=== PATIENT | male | born 1965 | race Caucasian/White ===

== ENCOUNTER 2024-09-05 15:00 | Outpatient (CLI) | payer OTHER, SELFPAY ==
[2024-09-06 17:56] LABS: PSA, Screening 1.3 ng/mL (<=3.5)
== END 2024-09-05 15:01 | disposition home or self-care (01) ==
LOC: LBO 15:02
PROVIDERS: PCP Family Medicine; Visit Provider Nurse Practitioner Gerontology
DX: R39.9 Unspecified symptoms and signs involving the genitourinary system (principal); R33.9 Retention of urine, unspecified; N40.1 Benign prostatic hyperplasia with lower urinary tract symptoms
CPT/HCPCS: 36415; 84153

== ENCOUNTER 2025-05-19 15:23 | Outpatient (CLI) | payer OTHER, SELFPAY ==
--- NOTE | 2025-05-19 14:45 | DI.RAD_ITS ---
Exam(s) XR PELVIS AP EXAM: XR PELVIS AP CLINICAL HISTORY: OA L hip THR Planning. TECHNIQUE: 2D digital imaging was performed. Single AP view. COMPARISON: CR XR HIP MIN 2V LT from 11/26/2024 FINDINGS: BONES: No acute fracture is present. No bony destructive lesion is seen. JOINTS: No dislocation present. Severe narrowing of the left superior hip joint space and periarticular spurring. Subchondral cysts noted on both sides of the joint. There appears to be some minor flattening of the femoral head. The right hip joint space is maintained. There is mild right acetabular spurring. SOFT TISSUE: Normal. IMPRESSION: Severe degenerative changes of the left hip. DATA REPOSITORY: RADIATION DOSE DELIVERED:
== END 2025-05-19 15:24 | disposition home or self-care (01) ==
LOC: DIORS 15:23
PROVIDERS: PCP Family Medicine; Visit Provider Physician Assistant
DX: M16.12 Unilateral primary osteoarthritis, left hip; M25.552 Pain in left hip
CPT/HCPCS: 72170

== ENCOUNTER 2025-07-17 18:29 | Outpatient (REF) | payer MEDICAID, SELFPAY ==
[2025-07-17 17:45] LABS: HCT 49.6 % (40.0-50.0); HGB 16.1 g/dL (13.5-17.5); MCH 30.2 pg (27.0-33.0); MCHC 32.5 % (32.0-36.0); MCV 93 fL (80-95); MPV 9.8 fL (8.0-11.0); Platelet Count 336 10^3/uL (130-400); RBC 5.33 10^6/uL (4.36-5.78); RDW 13.1 % (11.8-14.1); RDW-SD 44.4 fL; WBC 14.48 10^3/uL (4.4-10.8)
[2025-07-17 18:05] LABS: Anion Gap 11.3 mmol/L (3-11); BUN 20 mg/dL (7-18); CO2 22.7 mmol/L (21.0-32.0); Calcium 10.0 mg/dL (8.5-10.1); Chloride 105 mmol/L (98-107); Estimated GFR 105.49 (mL/min/1.73m2); Glucose 110 mg/dL (74-106); Potassium 4.6 mmol/L (3.5-5.1); Sodium 139 mmol/L (136-145)
== END 2025-07-17 18:30 | disposition home or self-care (01) ==
LOC: LBN 18:29
PROVIDERS: PCP Specialist/Technologist Athletic Trainer; Visit Provider Physician Assistant
DX: M16.12 Unilateral primary osteoarthritis, left hip (principal); Z01.818 Encounter for other preprocedural examination
CPT/HCPCS: 80048; 85027; 82985

== ENCOUNTER 2025-08-19 06:05 | Day surgery (SDC) | payer MEDICAID, SELFPAY ==
[2025-08-19] VITALS (29 sets, daily range): BP systolic 78–152; BP diastolic 26–86; PULSE 42–81; RESP 12–22; TEMP 35.8–36.8; O2SAT 84–100; BMI 29.6
--- NOTE | 2025-08-19 06:34 | W.ANESPRE ---
General Info Date of Service Date Performed: 08/19/25 Height: 5 ft 8 in Weight: 88.451 kg Body Mass Index (BMI): 29.6 Surgical Procedure: Operation Date: 08/19/25 07:50 Proposed Procedure Side Surgeon p Hip Total Hip Anterior, ACTIS Left Colby Lopez MD Meds Allergies and Home Medications Allergies Allergy/AdvReac Type Severity Reaction Status Date / Time No Known Allergies Allergy Verified 08/19/25 06:16 Home Medication ?Medication ?Instructions ?Recorded albuterol sulfate 90 mcg/actuation 2 puff inhalation Q6H PRN 06/17/24 aerosol inhaler albuterol sulfate 90 mcg/actuation 2 puff inhalation Q4H PRN 06/17/24 aerosol inhaler (Ventolin HFA) atorvastatin 20 mg tablet 20 mg PO DAILY 06/17/24 dapagliflozin propanediol 5 mg 5 mg PO DAILY 06/17/24 tablet (Farxiga) fluoxetine 60 mg tablet 60 mg PO DAILY 06/17/24 mecobalamin (vitamin B12) 1,000 1,000 mcg PO DAILY 06/17/24 mcg lozenges metformin 500 mg tablet 1,000 mg PO BID 06/17/24 alfuzosin 10 mg tablet,extended 10 mg PO DAILY #90 tabs 09/18/24 release 24 hr methylphenidate HCl 10 mg tablet 20 mg PO BID 07/17/25 tramadol 50 mg tablet 100 mg PO Q6H PRN 08/15/25 tirzepatide 5 mg/0.5 mL 5 mg subcut DIRECTED 08/18/25 subcutaneous pen injector (Marcus) Current Visit Medications: Current Medications Generic Name Dose Route Start Last Admin Trade Name Freq PRN Reason Stop Dose Admin Acetaminophen 1,000 mg 08/19/25 06:00 Acetaminophen 500 Mg Tab PO 09/17/25 23:59 PREOP WENDY Celecoxib 400 mg 08/19/25 06:00 Celecoxib 200 Mg Cap PO 09/17/25 23:59 PREOP WENDY Gabapentin 300 mg 08/19/25 06:00 Gabapentin 300 Mg Cap PO 09/17/25 23:59 PREOP WENDY Ringer's Solution 1,000 mls @ 80 mls/hr 08/19/25 06:00 IV 09/17/25 23:59 INFUSION WENDY Cefazolin Sodium/Dextrose 2 gm in 50 mls @ 100 mls/hr 08/19/25 06:00 Ancef Duplex IVPB 09/17/25 23:59 PREOP WENDY Tranexamic Acid/Sodium Chloride 1,000 mg in 100 mls @ 600 mls/hr 08/19/25 06:00 IVPB 09/17/25 23:59 PREOP WENDY IV Miscellaneous Supplies 1 each 08/19/25 06:00 Iv Access IV 09/17/25 23:59 DIRECTED WENDY Sodium Chloride 0 ml 08/19/25 06:00 Normal Saline Flush 10 Ml Syr IV 09/17/25 23:59 PRN PRN Sodium Chloride 0 ml 08/19/25 06:00 Normal Saline 10 Ml Vial IJ 09/17/25 23:59 DIRECTED PRN Sterile Water 0 ml 08/19/25 06:00 Water,Injection,Sterile 10 Ml Vial IJ 09/17/25 23:59 DIRECTED PRN PFSH Active Problems Active Problems: Problem Status Onset Code Osteoarthritis of left hip Acute M16.12 Medical History Medical History BPH w urinary obs/LUTS Urinary retention Vesicular eczema Psoriasis Prostatitis HTN (hypertension) Diabetes Smoking Periodic limb movement disorder TALIA (obstructive sleep apnea) Lumbago Knee pain HLD (hyperlipidemia) Heart murmur COLD (chronic obstructive lung disease) Allergic rhinitis Surgical History Surgical History H/O shoulder replacement Left Tobacco Smoking/Tobacco Use Status: Current every day Tobacco Type: cigarettes Alcohol Alcohol Intake: former Substance Use Substance use: Occasionally Substance use type: marijuana Details: couple times a week Anesthesia Assessment and Plan Anesthesia History Personal History: No History of Anesthesia Complications and Unknown Anesthesia History Family History: No Family History of Anesthesia Complications Exercise Tolerance Exercise Tolerance: Metabolic Equivalents>4 Pertinent Negatives Pertinent Negatives: No Symptoms of GERD, No Major Cardiovascular Symptoms or Complaints and No History of CVA/TIA Cardiac & Pulmonary Exam Cardiac Exam: Normal S1/S2 Heart Sounds Pulmonary Exam: Wheezing Present (instucted to take inhaler prior to surgery) Implantable Cardiac Device Does patient have a Pacemaker or an ICD?: No Airway Exam Known Difficult Airway: No Mallampati Class: 2 Mouth Opening: Normal (> 3cm) Thyromental Distance: Greater than 3 cm Neck Range of Motion: Full ROM Neck Circumference: Normal Teeth Condition: Generalized Poor Dentition ASA Classification ASA Score: ASA 3 Emergency Case?: No NPO Status NPO Status: NPO Clears >2 hours, Solids >8 hours Anesthesia Plan Resuscitation Status: Full Code Anesthesia Technique: Spinal Anesthesia Airway Planned: Natural Airway Monitors Used: Standard Monitors
[2025-08-19] MEDS: Acetaminophen 500 MG TAB 1000 MG PO (06:35)
[2025-08-19] MEDS: Celecoxib 200 MG CAP 400 MG PO (06:35)
--- NOTE | 2025-08-19 06:45 | DI.RAD_ITS ---
Exam(s) XR HIP LT IN OR EXAM: XR HIP LT IN OR CLINICAL HISTORY: Osteoarthritis of left hip TECHNIQUE: 2D and realtime digital imaging was performed. CONTRAST MATERIAL: Refer to procedure report. COMPARISON: CR XR PELVIS AP from 05/19/2025 FINDINGS: Fluoroscopy was provided for Dr. Lopez during the performance of a left total hip arthroplasty. Please refer to the procedure report for complete details. Ka,r=3.7 mGy IMPRESSION: RADIATION DOSE DELIVERED: 0.0 0.0 0
[2025-08-19] MEDS: Lactated Ringers 1,000 ML 80 ML IV (06:55)
--- NOTE | 2025-08-19 07:01 | W.PM.DSUDISC ---
Date of service: 08/19/25 Discharge Plan Disposition Patient Disposition: Home Condition: Good Discharge Details Reason For Visit: Left hip DJD Attending Provider: oClby Lopez Primary Care Provider: Dennys Rodas Home Meds and New Rx's Prescriptions: New celecoxib [Celebrex] 200 mg capsule 200 mg PO BID PRNQty: 60 0RF Rx Instructions: Take one tablet twice daily for pain and inflammation aspirin 81 mg tablet,delayed release (DR/EC) 81 mg PO BID 30 Days Qty: 60 0RF acetaminophen 500 mg tablet 1,000 mg PO Q8H PRN Qty: 90 0RF Rx Instructions: Take two tablets up to every 8 hours as needed for pain pantoprazole 40 mg tablet,delayed release (DR/EC) 40 mg PO DAILY Qty: 14 0RF Rx Instructions: Take one tablet once daily docusate sodium [Colace] 100 mg capsule 100 mg PO BID Qty: 28 0RF oxycodone 5 mg tablet 5 mg PO Q6H PRNQty: 12 0RF Rx Instructions: Take one tablet up to every 6 hours as needed for severe postoperative pain Continued albuterol sulfate 90 mcg/actuation HFA aerosol inhaler 2 puff inhalation Q6H PRN atorvastatin 20 mg tablet 20 mg PO DAILY dapagliflozin propanediol [Farxiga] 5 mg tablet 5 mg PO DAILY Patient Comments: 08/15- preop call done and advised to hold med until after surgery fluoxetine 60 mg tablet 60 mg PO DAILY metformin 500 mg tablet 1,000 mg PO BID Patient Comments: 08/15 preop call advised pt to hold pm dose night before and am dose day of surgery albuterol sulfate [Ventolin HFA] 90 mcg/actuation HFA aerosol inhaler 2 puff inhalation Q4H PRN mecobalamin (vitamin B12) 1,000 mcg lozenge 1,000 mcg PO DAILY Rx Instructions: allow to dissolve in mouth OR may chew lightly before swallowing alfuzosin 10 mg tablet extended release 24 hr 10 mg PO DAILY Qty: 90 1RF Rx Instructions: administer after the same meal each day methylphenidate HCl 10 mg tablet 20 mg PO BID Mounjaro 5 mg/0.5 mL pen injector 5 mg SUBCUT DIRECTED Patient Comments: INJECT 5MG SUBCUTANEOUSLY ONCE WEEKLY, ROTATE INJECTION SITES Discontinued tramadol 50 mg tablet 100 mg PO Q6H PRN Patient Comments: TAKE TWO TABLETS BY MOUTH EVERY 8 HOURS NEEDED FOR PAIN Discharge Instructions Additional Instructions: Total Hip Discharge Instructions Activity: The most important activity is to walk. You should try to take short walks a few times a day. You have no restrictions on movement or positioning, but do not try to force what you do. You will find some stiffness and weakness with hip flexion (lifting your knee). Do not try to strengthen this too early, continue to practice walking and stairs and this will come. - Outpatient physical therapy can be helpful to help return you to a normal gait and improve your flexibility and strength. This can start around 2 weeks. For some patients, it?s not necessary. Usually this is determined at the time of discharge or at the first post-operative visit. - You should wear the YAKELIN hose on both legs for 2 weeks. Dressing: Keep the surgical dressing in place for at least one week. After the first week it may be removed and replace with light gauze and tape or nothing. It may get wet after 3 days but avoid soaking the dressing. If it gets wet, just lightly pat dry. It is important to always keep some gauze between skin folds, especially when you are sitting. Spend some time with the wound exposed when you are lying flat as the incision does wrinkle onto itself. Medications: - You should take Tylenol and an anti-inflammatory Celebrex as your primary pain control medications. If the Celebrex is too expensive or not covered, please call the office for another alternative (Advil/Ibuprofen or Naproxen/Aleve). - You have been prescribed a stronger pain medication Oxycodone for breakthrough pain, take as needed as prescribed. - You have also been prescribed a stomach acid reduction agent Pantoprozole to help reduce stomach acid and reflux. - You will be taking Aspirin 81mg twice a day for DVT prevention unless instructed otherwise. - If you have constipation you should take Colace (which has been prescribed) or Miralax (which is available [id number]). It takes most people 3-4 days to have a bowel movement. Follow-up: 2 weeks If you have any acute concerns or questions, please do not hesitate to contact the office at [phone]. You may contact Dr. Lopez with any questions after hours through the hospital at [phone] or on his cell phone at [phone]. Referrals: Colby Lopez MD [ [facility] STAFF PHYSICIAN, Orthopaedic Surgical] Equipment/Supplies: Walker Activity:: Elevate Remove Dressings/Wound Care:: Do Not Remove Shower/Bathe:: Cover Diet:: As Tolerated Discharge Orders Discharge Orders: Discharge Order (Routine); Ordered 08/19/25 Ordered By: Chanelle Shea
--- NOTE | 2025-08-19 07:26 | ROE_ITS ---
Operative Note Operative Note PRE-OP DIAGNOSIS: Left Hip Osteoarthritis POST-OP DIAGNOSIS: same PROCEDURE: Left Anterior Total Hip Arthroplasty with Intraoperative Navigation SURGEON: Colby Lopez OUTREACH REPRESENTATIVE: Chanelle Shea ANESTHESIA TYPE: Spinal Refer to Anesthesia Record ESTIMATED BLOOD LOSS: 100 PATHOLOGY: none sent TOURNIQUET TIME: 0 COMPLICATIONS: None Patient was transported to: PACU Patient's condition: stable Implants: 1. Depuy [place] Acetabular Component, 54mm 2. Depuy Acetabular Liner, [id number] 3. Depuy Actis High Offset Collared Femoral Stem, Size 4 4. Depuy Altrx Ceramic Femoral Head, Size 36+1.5mm Indications: I have seen Nayan in clinic for symptoms of hip arthritis, confirmed with radiographic findings. He has exhausted nonoperative methods and was having significant limitations in daily function and desired better function and less pain. I discussed the technical details of a hip replacement. I explained the risks of the procedure to include, but not limited to, bleeding, infection, pain, stiffness, fracture, damage to nerves and vessels, damage to muscles and tendons, loosening, instability, leg length inequality, need for repeat procedure, blood clot and cardiopulmonary demise. Despite these risks, aNyan elected to proceed. Findings: There was significant signs of arthritis throughout the hip with large osteophytes around the acetabulum and the femoral neck. Procedure Description: Nayan was greeted in the preoperative holding area where the correct side was identified and marked. The consent was reviewed with the patient and signed. The history and physical was updated. All questions were answered. He was taken back to the operating room. A spinal anesthestic was then administered. The feet were wrapped with cast padding and Coban and then placed into the boot liners and then into the boots. Care was taken to protect the skin and make sure the heels were fully down and the boots were stable. The patient was then positioned onto the HANA table. Both legs were held in a neutral position. SCDs were applied. The patient was then slid down onto a peroneal post. Prophylactic antibiotics in the form of Cefazolin were administered. 1g of Tranxemic Acid was given intravenously within 30 minutes of incision. The left leg was then prepped with Chloraprep and draped in a standard fashion. A second prep with Chloraprep was performed prior to placeme nt of a shower-curtain type drape with Iodine impregnated skin protection. A timeout to confirm correct identity, side and site, procedure, allergies, anesthesia, and medical concerns was performed. An obliquely oriented incision was made starting lateral to the ASIS and running distal over the Tensor Fascia Oxana (TFL) muscle belly toward the fibular head, approximately 10cm. The skin and soft tissue was dissected sharply, through Gabi?s fascia, and to the fascia of the TFL. With the fascia and superior border of the IT band identified, the fascia was incised with a new knife just above any perforators from the IT band. The TFL muscle belly was bluntly dissected away from the fascia and moved laterally. The fat between TFL and rectus was identified to ensure the dissection was not within the TFL. Blunt dissection created space between abductors and the capsule and retractor was placed over the lateral femoral neck. The fibers of the rectus femoris tendon were identified and these were freed from the anterior capsule. A second cobra retractor was placed around the medial femoral neck. The TFL was further retracted laterally to show the deep fascia. Careful dissection through this layer identified three main crossing vessels of the lateral femoral circumflex. These were cauterized in multiple locations and then cut without any noticeable bleeding. The TFL was further released bluntly from the deep fascia to expose anterior hip capsule and fat The soft tissue orthopaedic retractor was then placed beneath the TFL and against sartorius and medial soft tissues to protect and retract the soft tissues. A T-capsulotomy was then performed starting at the superior lateral acetabulum and moving distally to the intertrochanteric ridge. These capsular flaps were tagged with a No. 1 Vicryl and elevated from within. The capsular flaps were released to the shoulder of the lateral neck and to the lesser trochanter to give excellent visualization of the proximal femur. A neck osteotomy was performed using an oscillating saw based on preoperative templates. This cut started in the shoulder and of the lateral neck and exited medially. The saw was at all times directed medially to avoid injury to the greater trochanter. Gross traction was applied to the leg and the osteotomy opened. The femoral head was removed with a corkscrew, making sure to protect the TFL on its exit. Traction was released after head removal. This was measured on the back table to determine the starting reamer size. Portions of the rectus obscuring visualization were minimally elevated off the superior acetabulum. An anterior retractor was placed over the anterior wall between capsule and labrum and attached to the Gripper retraction system. The femur was rotated to 90 degrees and medial capsule was fully released until the lesser trochanter was palpable and visible; the femur was returned to 30 degrees. A posterior retractor was placed similarly between capsule and labrum. This provided excellent visualization. The contents of the cotyloid fossa were removed with electrocautery and the labrum was removed with a knife. There was a large os acetabuli incorporated into the anterior labrum which was also removed. There was a notable floor osteophyte. There was significant chondromalacia of the superior acetabulum. Acetabular reaming began with a 49mm reamer. This first reaming was directed anterior to posterior and medial to get down to the true floor. This was inspected and reamed until the true floor was reached. The anterior retractor was then released and entry and exit was provided by traction on the capsular flaps. I then reamed sequentially up to a 54mm reamer where good fit was obtained. The larger reamers were oriented based on anatomical reference of the anterior and lateral sprague to ensure proper abduction and anteversion. Positioning and size was confirmed with the fluoroscopy. A 54mm Depuy [place] acetabular component was selected. The acetabulum was reamed around the periphery with the selected acetabular size to prevent a rim fit. The deep tissues were irrigated. The acetabular component was then impacted in a position of about 40-45 degrees of abduction and 15-20 degrees of anteversion, using the patient?s anatomy as the ultimate landmark. Fluoroscopy was used to confirm this. There was excellent care transition coordinator of the acetabular component and the inserting handle was removed. The acetabular liner, Depuy [id number] polyethylene liner, was inserted and lined up with the tines of the acetabular component. There was no soft tissue interposition. The liner was then impacted into position and confirmed to be well-seated. A portion of the amol-articular cocktail was then injected around the acetabulum into the capsule and periosteum. This cocktail consisted of 123mg of Ropivacaine, 0.25mg of Epinephrine, 0.04mg of Clonidine, and 15mg of Ketorolac, diluted to 50cc. The leg was rotated to 120 degrees. Any remaining medial capsule was released until the lesser trochanter was easily palpable. A retractor was placed medially. The lateral capsule was further released into the shoulder to allow access to the greater trochanter. A Dejesus retractor was placed over the greater trochanter which allowed the trochanter to flip in front of the capsule for excellent exposure. The leg was brought down into maximal extension and 20 degrees of adduction while ensuring there was no impingement on the acetabulum. Any remnant capsule within the trochanter was released. Piriformis and obturator externis were identified and protected. There was excellent access to the proximal femur. The lateral neck remnant was removed with a rongeur. A blunt canal probe was used to identify the canal and trajectory for later broaching. A box osteotome initiated the broach course. A small curved rasp and a curved curette were used to work laterally. Broaching then began with a starter Actis broach. This was inserted manually around the trochanter and into the canal before mallet blows. The broach was seated to the neck cut level based on the neck cut and the preoperative template. Sequential broaching was continued with the GitCafese pneumatic broaching device until a tight fit was obtained with good rotational control of the femur. A trial standard neck was inserted along with a +8.5 trial head. The leg was brought out of extension and adduction and then reduced with traction and internal rotation. The leg was stable anteriorly in a position of 30 degrees of extension and 90 degrees of external rotation. Fluoroscopy was used to ensure there was no fracture and the stem was seated well. Leg lengths were checked with an AP pelvis and pelvic reference points. Game Blisters navigation system was used to confirm appropriate positioning and leg length and offset. This showed appropriate offset but too much leg length which would be corrected by going to a high offset stem with a +1.5 mm head. Once content with the desired offset and leg lengths, the leg was brought back into extension, external rotation and adduction. The periosteum and surrounding tissue was injected with remaining portion of the amol-articular cocktail. The proximal femur was irrigated as well as the deep tissues. The Depuy Actis high offset collared stem, size 4, was then manually inserted into the proximal femur making sure to control rotation. It was then malleted into position with light blows, giving breaks to allow bone expansion and decrease risk of fracture. The selected Depuy Altrx Ceramic Head, size 36+1.5mm, was then placed onto the clean and dry trunnion and secured with impaction onto the tapered fit. The leg was brought back out of extension and adduction and reduced with tracti on and internal rotation. Stability was confirmed with no shuck at 90 degrees of external rotation and 30 degrees of extension. No impingement through range of motion arc. Final x-ray images were obtained with fluoroscopy to confirm adequate positioning and no intraoperative fracture. The deep tissues were thoroughly irrigated with Surgiphor, betadine solution. This was allowed to sit in the wound for 3 minutes before being thoroughly irrigated out with normal saline. The capsule was then reapproximated with the previously placed sutures in the proximal portion of the anterior capsule was also reapproximated with #1 Vicryl. The TFL fascia was finally closed with a No. 2 Stratafix, barbed suture. Deep tissues were then reapproximated with 0 Vicryl and a running 2-0 Vicryl. The skin was closed with a running 4-0 Monocryl in a subcuticular fashion. This was reinforced with skin glue. A Mepilex silver dressing was applied. At the end of the case, all counts were correct. Nayan was transferred to the hospital bed without difficulty and suffering no apparent complication. Nayan has a good prognosis. Physical therapy will start today and without restrictions, weight-bearing as tolerated. Aspirin 81mg BID will be used for DVT prophylaxis. Date of Procedure: 08/19/25
[2025-08-19] MEDS: ceFAZolin 2 GM/50 ML BAG IVPB (07:41)
[2025-08-19] MEDS: TRANEXAMIC ACID/SOD. CHL. 1,000 MG/100 ML BAG 600 MG IVPB (07:45)
[2025-08-19] MEDS: ePHEDrine 25 MG/5 ML Syringe IVP (09:28)
[2025-08-19] MEDS: fentaNYL 100 MCG/2 ML VIAL IVP ×2 (09:57→10:07)
[2025-08-19] MEDS: Tranexamic Acid 650 MG TAB 1300 MG PO (11:06)
[2025-08-19] MEDS: oxyCODONE 5 MG TAB PO ×2 (11:06→11:36)
--- NOTE | 2025-08-19 11:19 | IN_ITS ---
PT Notes Visit Reasons: Left hip DJD Physical Therapy Day Surgery Initial Evaluation Date: 08/19/2025 Referring Doctor: Chanelle Shea NP/Dr. Lopez PT Orders: PT CONSULT: Status post Ortho surgery Precautions: WBAT left LE Patient Profile/Admitting Diagnosis: Nayan is a 59-year-old male presents status post elective left WARNER under spinal anesthesia by Dr. Lopez on 08/19/2025. Postop uncomplicated PMHX: BPH w urinary obs/LUTS Urinary retention Vesicular eczema Psoriasis Prostatitis HTN (hypertension) Diabetes Smoking Periodic limb movement disorder TALIA (obstructive sleep apnea) Lumbago Knee pain HLD (hyperlipidemia) Heart murmur COLD (chronic obstructive lung disease) Allergic rhinitis Social History/Home Situation: Resides in multilevel home ramp to enter. Patient independent without device independent driving independent ADLs Equipment Owned/DME: None at home; patient fitted for and issued FWW Subjective: Patient reports he just wants to get up and move. Objective: [] General Observation: Male restless in bed ice pack to left hip Mental Status: Alert oriented x 4, agreeable to participate, cooperative able to follow instructions. Patient noted to be very restless antsy frequently changing positions Pain: Left hip initially 2/ 10 then progressed to 4/10 with ambulation then increased to 8/10 after stairs patient adamantly declined pain medication prior to functional mobility. However agreeable after performing stairs FELISA Portillo provided medication. ROM: [] Right Upper Extremity: WNL Left Upper Extremity: WNL Right Lower Extremity: WNL Left Lower Extremity: Hip flexion 95 degrees, abduction 10 degrees, extension to neutral, knee and ankle within normal limits Strength: [] Right Upper Extremity: 5/5 Left Upper Extremity: 5/5 Right Lower Extremity: 5/5 Left Lower Extremity: Hip flexion: 3 -/5; hip abduction: 2+/5; hip extension: 3 -/5; knee extension: 3/5; knee flexion: 3 -/5 ankle DF: 3/5 ; ankle PF: 3/5 Sensation: Intact Bed Mobility/Transfers: Supine to sit independent Sit to stand SBA with initial cues to push up from surface Stand to sit SBA Bed to chair SBA with FWW Gait: Ambulated with FWW 100 feet with reciprocal pattern decreased weightbearing through left lower extremity antalgic gait pattern with significant limp noted as increased distance. Stairs: 3 4 steps? and 2 6 steps with rails SBA with continuous cues for sequencing step to pattern x 2 trials Balance: [] Static Sitting: Normal Dynamic Sitting: Good Static Standing: Normal Dynamic Standing: Good Special Tests: [] Mobility Limitations Standardized Measure [] [facility] AM-PAC 6 clicks Basic Mobility Inpatient Short Form: [] Raw Score: 23 CMS Score: 11.20% Informed Consent/Education: Patient instructed in purpose of PT consult. Treatment: 48519 packet containing WARNER exercise protocol has been given to patient. Education and training on initial set of 5 reps of exercises that can be done at home have been completed with patient. Assessment: Patient is a 59-year-old male who presents with clinical signs and symptoms consistent with current/admitting diagnoses that have resulted to mobility limitations, gait instability, generalized weakness, and impairment of motor control as demonstrated by the following impairment level findings: 1. Decreased strength to left hip major muscle groups 2. Impaired standing balance 3. Limitation of joint range of motion in left hip 4. Pain left hip 5. Impaired functional activity tolerance and standing Impairments are contributing to the following functional limitations: 1. Inability to safely ambulate without assistive device 2. Increase completion time for mobility ADL performance 3. Increased fall risk 4. Difficulty performing stairs without pain or assistive device Patient is assessed as a low complexity based on the following: History: 59 lfr-hoht-[id number] male with impairment level findings, functional limitations, and past medical history as indicated above Examination: Demonstrable impairment in strength, balance, and mobility level with underlying impairments and functional limitations as documented above Presentation: Stable/evolving Decision Making: Low Goals: N/A. PT evaluation and 1-2 treatment sessions only for functional mobility training using recommended AD and for HEP instruction. Plan of Care/Treatment Plan: N/A. PT evaluation and 1-2 treatment session only for functional mobility training using recommended AD and for HEP instruction. DISCHARGE RECOMMENDATIONS: Home with use of FWW and home exercise program TREATMENT CODE/TIME: 44250, [id number] Thank you for the opportunity to participate in the care of this patient. Jenifer Domínguez, PT [facility]
--- NOTE | 2025-08-19 11:33 | W.ANESPOSTOP ---
Postoperative Evaluation Date, Time and Location Date Performed: 08/19/25 Time Performed: 11:33 Patient Location: Day Surgery Unit Vital Signs Most Recent Imported Vital Signs: Most Recent Vital Signs Temp Pulse Resp BP Pulse Ox 36.0 C L 51 L 18 126/65 98 08/19/25 11:28 08/19/25 11:28 08/19/25 11:28 08/19/25 11:28 08/19/25 11:28 Pain Score Most Recent Pain Score: Most Recent Pain Score Pain Level 0 08/19/25 10:52 Assessment Mental Status: Awake (Alert & Oriented to Patient Baseline) Airway and Respiratory Function: Patent airway with normal (patient baseline) respiratory exam Cardiovascular Function: Hemodynamically Stable Hydration Status: Adequately Hydrated Nausea & Vomiting: No Nausea or Vomiting Pain: Pain is tolerable per patient Peripheral Nerve Block: Patient did not receive a nerve block
== END 2025-08-19 12:00 | disposition home or self-care (01) ==
PROVIDERS: PCP Specialist/Technologist Athletic Trainer; Visit Provider Student in an Organized Health Care Education/Training Program
PROC: (CPT 27130; principal; 2025-08-19 07:30)
DX: M16.12 Unilateral primary osteoarthritis, left hip (principal)
CPT/HCPCS: 27130; 20985; 97110; 97161; 73501; C1776; J0690; J2250; J2371; J2401; J2405; J2704; J3010

== ENCOUNTER 2025-09-01 15:16 | Outpatient (CLI) | payer MEDICAID, SELFPAY ==
--- NOTE | 2025-09-01 12:15 | DI.RAD_ITS ---
Exam(s) XR HIP LT COMPLETE AP PELVIS EXAM: XR HIP LT COMPLETE AP PELVIS CLINICAL HISTORY: 1ST POST OP S/P L WARNER. TECHNIQUE: 2D digital imaging was performed. Two views. COMPARISON: CR XR PELVIS AP from 05/19/2025 XA XR HIP LT IN OR from 08/19/2025 FINDINGS: BONES: No acute fracture is present. No bony destructive lesion is seen. Enthesophytes at the iliac wings. JOINTS: Stable appearance of left hip prosthesis. No dislocation present. The SI joints and pubic symphysis are intact. There are mild degenerative changes of the right hip. SOFT TISSUE: Normal. IMPRESSION: Stable appearance of left hip prosthesis. DATA REPOSITORY: RADIATION DOSE DELIVERED:
--- NOTE | 2025-09-04 01:47 | NUR.NOTE ---
Pt accepted as lateral tx from [facility] - accepted by Dr. Richardson/Dr. Valentine. Accepted med records for continuation of care
== END 2025-09-01 15:17 | disposition home or self-care (01) ==
LOC: DIORS 15:17
PROVIDERS: PCP Specialist/Technologist Athletic Trainer; Visit Provider Student in an Organized Health Care Education/Training Program
DX: M16.12 Unilateral primary osteoarthritis, left hip (principal); Z96.642 Presence of left artificial hip joint
CPT/HCPCS: 73502

== ENCOUNTER 2025-09-04 02:49 | Inpatient (IN) | payer MEDICAID, SELFPAY ==
[2025-09-04] VITALS (43 sets, daily range): BP systolic 84–126; BP diastolic 41–80; PULSE 54–81; RESP 12–24; TEMP 35.8–38.4; O2SAT 81–99; BMI 31.1
--- NOTE | 2025-09-04 02:06 | W.PC.ACHO ---
Registration Status: PRE IN Primary Language: Preferred Language: Medical / Surgical History (Last Reviewed 08/19/25 @ 06:25 by Mendy Scott) BPH w urinary obs/LUTS Urinary retention Vesicular eczema Psoriasis Prostatitis HTN (hypertension) Diabetes Smoking Periodic limb movement disorder TALIA (obstructive sleep apnea) Lumbago Knee pain HLD (hyperlipidemia) Heart murmur COLD (chronic obstructive lung disease) Allergic rhinitis (Last Reviewed 08/19/25 @ 06:25 by Mendy Scott) H/O shoulder replacement Allergies No Known Allergies Allergy (Verified 09/01/25 13:11) v v v v v v v v v Sending and/or Receiving Nurses: Please use comment section below to note any information pertinent to the patient hand-off not included above. Information / Comments: Nayan Stock, 59 yo male, with c/o left hip pain. Left hip replacement done at [facility] approximately 1 month ago. Post op wound infection. Given in [facility] ER: 1L NS bolus, 2 gram Ceftriaxone @ 2300, 1mg dilaudid @ 0000. Pt VSS, RA, Stand and Pivots, uses urinal, voiding, NKDA, no images done at [facility]. Blood Cultures sent, Wound cultures sent, WBC 22.6, lactate 3.6, #18 RFA. Hx to include: DM type 2, smoker, COPD, chronic pain, heart murmur, HTN, sleep apnea, psoriasis Report received from: Cheri Prather RN at [facility] (Emergency Dept) @ 0155 09/04/25
[2025-09-04] MEDS: MORPHine 2 MG/ML SYR IVP ×2 (03:14→08:18)
--- NOTE | 2025-09-04 03:23 | W.PM.HP.N ---
Date of service: 09/04/25 Time of Service: 03:23 Assessment and Plan Assessment and plan (1) History of total left hip replacement: Status: Acute Assessment and plan: Patient does appear to be having a infection unknown whether this is a deep infection. Provide discussion with malt house supervisor Dr. Valentine is aware and plans on doing washout tomorrow. Patient was given Rocephin at outlying facility. According to up-to-date but attempted washout should be performed soon as possible. Considering that the Rocephin will last over 24 hours we will hold off on antibiotics at this time. (2) Smoking: Status: Acute Assessment and plan: Will add Nicorette at patient's request (3) HLD (hyperlipidemia): Assessment and plan: Continue with statin (4) Diabetes: Assessment and plan: Will add glucometers q. ACHS as well as a sliding scale as tight glucose control will help his wound healing. (5) Urinary retention: Assessment and plan: Continue with his home meds (6) COLD (chronic obstructive lung disease): Assessment and plan: Will add inhalers as needed In regards to DVT prophylaxis since he is most likely for surgery tomorrow will just do SCDs History of Present Illness History of Present Illness Chief Complaint: left hip pain Narrative: This is a 64-year-old gentleman with a known history of COPD dyslipidemia BPH diabetes controlled with metformin Farxiga and Mounjaro who had left hip replacement on 08/19/2025 and was seen again for postoperative check on 09/01/2025 and at that time he was doing fairly well. Patient did have mild drainage from the caudal part of the wound. Over the last 48 hours the patient had worsening left leg and hip pain which the ED at [facility] where an evaluation was started including lab work. In reviewing that lab work he does have a white count of 22,000 mild anemia with a hemoglobin of 13 and hematocrit hematocrit of 39 as well as a left shift. Patient was noted to have hyponatremia with a sodium of 132 and elevated BUN to creatinine ratio of 29:1 0.19 lactic acid level 3.6 CRP of 230 physician from [facility] recommended transfer to our facility as procedure was done here to which we agree. Patient states he smokes approximately 1 pack of cigarettes a week. States he otherwise takes his medications. Did not have any trouble with anesthesia. While he was in the ED at [facility] he was given Rocephin 2 g. Patient does endorse fevers and chills x 48 hours. Patient is a full code Review of Systems All systems reviewed & are unremarkable except as noted in HPI and below PFSH All Active Problems (Updated 09/01/25 @ 13:19 by GARRY Givens) Smoking (Acute) History of total left hip replacement (Acute 08/19/25) Medical History (Updated 09/01/25 @ 13:20 by GARRY Givens) BPH w urinary obs/LUTS Urinary retention Vesicular eczema Psoriasis Prostatitis HTN (hypertension) Diabetes Periodic limb movement disorder TALIA (obstructive sleep apnea) Lumbago Knee pain HLD (hyperlipidemia) Heart murmur COLD (chronic obstructive lung disease) Allergic rhinitis Surgical History (Updated 09/01/25 @ 13:19 by GARRY Givens) H/O shoulder replacement Left Social History Smoking/Tobacco Use Status: Current every day Tobacco Type: cigarettes Smoking risk assessment performed?: Yes Alcohol Intake: former Drug use: Occasionally Substance use type: marijuana Details: couple times a week Housing: other Do you feel safe at home: Yes Do you feel safe in your relationship?: Yes Additional Social history: [employer], mobile home Meds Allergies and Home Medications Allergies Allergy/AdvReac Type Severity Reaction Status Date / Time No Known Allergies Allergy Verified 09/01/25 13:11 Home Medications Medication Instructions Recorded Confirmed Type albuterol sulfate 90 mcg/actuation 2 puff inhalation Q6H PRN 06/17/24 09/04/25 History aerosol inhaler albuterol sulfate 90 mcg/actuation 2 puff inhalation Q4H PRN 06/17/24 09/04/25 History aerosol inhaler (Ventolin HFA) atorvastatin 20 mg tablet 20 mg PO DAILY 06/17/24 09/04/25 History dapagliflozin propanediol 5 mg 5 mg PO DAILY 06/17/24 09/04/25 History tablet (Farxiga) fluoxetine 60 mg tablet 60 mg PO DAILY 06/17/24 09/04/25 History mecobalamin (vitamin B12) 1,000 1,000 mcg PO DAILY 06/17/24 09/04/25 History mcg lozenges metformin 500 mg tablet 1,000 mg PO BID 06/17/24 09/04/25 History alfuzosin 10 mg tablet,extended 10 mg PO DAILY #90 tabs 09/18/24 09/04/25 Rx release 24 hr methylphenidate HCl 10 mg tablet 20 mg PO BID 07/17/25 09/04/25 History tirzepatide 5 mg/0.5 mL 5 mg subcut DIRECTED 08/18/25 09/04/25 History subcutaneous pen injector (Mounjaro) acetaminophen 500 mg tablet 1,000 mg (2 x 500 mg) PO Q8H PRN 08/19/25 09/04/25 Rx pain #90 tabs aspirin 81 mg tablet,delayed 81 mg PO BID 30 days #60 tabs 08/19/25 09/04/25 Rx release celecoxib 200 mg capsule (Celebrex) 200 mg PO BID PRN #60 caps 08/19/25 09/04/25 Rx docusate sodium 100 mg capsule 100 mg PO BID #28 caps 08/19/25 09/04/25 Rx (Colace) fluoxetine 40 mg capsule mg 09/04/25 History methylphenidate HCl 20 mg tablet mg 09/04/25 History tamsulosin 0.4 mg capsule mg PO 09/04/25 History tiotropium bromide 18 mcg capsule inhalation 09/04/25 History with inhalation device (Spiriva with HandiHaler) Exam Narrative Exam Narrative: HEENT-normocephalic atraumatic mucous membranes moist Neck-no lymphadenopathy no JVD no thyromegaly Cardiovascular-regular rate rhythm no murmurs gallops distant Lungs-clear to auscultation bilaterally good air exchange Abdomen-soft nontender nondistended Musculoskeletal with skin-approximately 4 inch vertical scar on his left hip with surrounding induration and erythema. There does appear to be some pus leaking from the Psych-alert and oriented x 3 Results Labs 09/04/25 05:35 09/04/25 05:35 Time Spent Time spent with Patient: 40-54 minutes Time was spent: preparing to see the patient(eg.review tests), obtaining and/or reviewing separately otained hiistory, ordering medications,tests, procedures, referring, communicating with other health career law clerk, indepentently interpreting results, counseling the patient and care coordination
[2025-09-04] MEDS: HYDROmorphone 2 MG/ML SYR 1 MG IVP (04:11)
[2025-09-04] MEDS: DEXTROSE 5%-0.45% SALINE 1,000 ML 75 ML IV (04:12)
[2025-09-04] MEDS: Normal Saline Flush 10 ML SYR (04:16)
[2025-09-04 07:31] LABS: Abs Immature Grans 0.18 10^3/uL (0.0-0.06); HCT 35.3 % (40.0-50.0); HGB 11.8 g/dL (13.5-17.5); Immature Grans % 0.9 %; MCH 30.9 pg (27.0-33.0); MCHC 33.4 % (32.0-36.0); MCV 92 fL (80-95); MPV 9.7 fL (8.0-11.0); Platelet Count 266 10^3/uL (130-400); RBC 3.82 10^6/uL (4.36-5.78); RDW 13.9 % (11.8-14.1); RDW-SD 47.3 fL; WBC 20.84 10^3/uL (4.4-10.8)
--- NOTE | 2025-09-04 07:38 | W.ANESPRE ---
General Info Date of Service Date Performed: 09/04/25 Height: 5 ft 8 in Weight: 93.1 kg Body Mass Index (BMI): 31.1 Surgical Procedure: Operation Date: 09/04/25 07:50 Proposed Procedure Side Surgeon p Hip I&D Possible Revision Left Colby Lopez MD Meds Allergies and Home Medications Allergies Allergy/AdvReac Type Severity Reaction Status Date / Time No Known Allergies Allergy Verified 09/01/25 13:11 Home Medication Medication Instructions Recorded albuterol sulfate 90 mcg/actuation 2 puff inhalation Q6H PRN 06/17/24 aerosol inhaler albuterol sulfate 90 mcg/actuation 2 puff inhalation Q4H PRN 06/17/24 aerosol inhaler (Ventolin HFA) atorvastatin 20 mg tablet 20 mg PO DAILY 06/17/24 dapagliflozin propanediol 5 mg 5 mg PO DAILY 06/17/24 tablet (Farxiga) fluoxetine 60 mg tablet 60 mg PO DAILY 06/17/24 mecobalamin (vitamin B12) 1,000 1,000 mcg PO DAILY 06/17/24 mcg lozenges metformin 500 mg tablet 1,000 mg PO BID 06/17/24 alfuzosin 10 mg tablet,extended 10 mg PO DAILY #90 tabs 09/18/24 release 24 hr methylphenidate HCl 10 mg tablet 20 mg PO BID 07/17/25 tirzepatide 5 mg/0.5 mL 5 mg subcut DIRECTED 08/18/25 subcutaneous pen injector (Marcus) acetaminophen 500 mg tablet 1,000 mg (2 x 500 mg) PO Q8H PRN 08/19/25 pain #90 tabs aspirin 81 mg tablet,delayed 81 mg PO BID 30 days #60 tabs 08/19/25 release celecoxib 200 mg capsule (Celebrex) 200 mg PO BID PRN #60 caps 08/19/25 docusate sodium 100 mg capsule 100 mg PO BID #28 caps 08/19/25 (Colace) fluoxetine 40 mg capsule 40 mg PO DAILY 09/04/25 methylphenidate HCl 20 mg tablet mg 09/04/25 tamsulosin 0.4 mg capsule mg PO 09/04/25 tiotropium bromide 18 mcg capsule inhalation 09/04/25 with inhalation device (Spiriva with HandiHaler) Current Visit Medications: Current Medications Generic Name Dose Route Start Last Admin Trade Name Freq PRN Reason Stop Dose Admin Acetaminophen 325 - 650 mg 09/04/25 02:49 Acetaminophen 325 Mg Tab PO Q4H PRN PRN Al Hydrox/Mg Hydrox/Simethicone 30 ml 09/04/25 02:49 Mylanta Suspension 30 Ml Cup PO Q2H PRN PRN Albuterol Sulfate 2.5 mg 09/04/25 03:36 Albuterol 2.5 Mg/3 Ml Inh Soln Vial UPD Q3H PRN PRN Albuterol/Ipratropium 3 ml 09/04/25 06:38 Albuterol/Ipratropium 3 Ml Upd Vial UPD Q6H PRN PRN Dextrose 0 gm 09/04/25 03:35 Glucose Oral Gel 15 Gm/37.5 Gm Tube PO DIRECTED PRN Dextrose/Water 0 gm 09/04/25 03:35 Dextrose 50%-Water 25 Gm/50 Ml Syr IVP DIRECTED PRN Docusate Sodium 100 mg 09/04/25 02:49 Docusate Sodium 100 Mg Cap PO TID PRN PRN Dextrose/Sodium Chloride 1,000 mls @ 75 mls/hr 09/04/25 03:00 09/04/25 04:12 Dextrose 5%-0.45% Ns IV 75 mls/hr INFUSION WENDY Administration Insulin Aspart 0 units 09/04/25 08:00 Insulin Aspart 300 Units/3 Ml Pen SC Q6H WENDY Protocol Magnesium Hydroxide 30 ml 09/04/25 02:49 Milk Of Magnesia 30 Ml Cup PO DAILY PRN PRN Morphine Sulfate 2 mg 09/04/25 02:48 09/04/25 03:14 Morphine 2 Mg/Ml Syr IVP 2 mg Q3H PRN PRN Administration Nicotine 2 mg 09/04/25 03:22 Nicotine 2 Mg Gum CH Q4H PRN PRN Polyethylene Glycol 17 gm 09/04/25 02:49 Polyethylene Glycol 3350 17 Gm Packet PO DAILY PRN PRN Constipation PFSH Active Problems Active Problems: Problem Status Onset Code Smoking Acute F17.200 History of total left hip replacement Acute 08/19/25 Z96.642 Medical History Medical History (Updated 09/01/25 @ 13:20 by GARRY Givens) BPH w urinary obs/LUTS Urinary retention Vesicular eczema Psoriasis Prostatitis HTN (hypertension) Diabetes Periodic limb movement disorder TALIA (obstructive sleep apnea) Lumbago Knee pain HLD (hyperlipidemia) Heart murmur COLD (chronic obstructive lung disease) Allergic rhinitis Surgical History Surgical History (Updated 09/01/25 @ 13:19 by GARRY Givens) H/O shoulder replacement Left Tobacco Smoking/Tobacco Use Status: Current every day Tobacco Type: cigarettes Alcohol Alcohol Intake: current Alcohol intake frequency: holidays/special occasions only Alcohol type: beer and wine Substance Use Substance use: Occasionally Substance use type: marijuana Details: once every 2 weeks Vital Signs and Lab Results Vital Signs Most Recent Vital Signs in EMR: Most Recent Vital Signs Temp Pulse Resp BP Pulse Ox 37.2 C 81 18 117/54 L 97 09/04/25 03:39 09/04/25 03:39 09/04/25 03:39 09/04/25 03:39 09/04/25 03:39 Point of Care Results Point of Care Results: Finger Stick Blood Glucose 195 09/04/25 06:36 Lab Results Complete Blood Count: WBC, (4.4-10.8) 20.84 10^3/uL H Today, 06:55 RBC, (4.36-5.78) 3.82 10^6/uL L Today, 06:55 Hgb, (13.5-17.5) 11.8 g/dL L Today, 06:55 Hct, (40.0-50.0) 35.3 % L Today, 06:55 Plt Count, (130-400) 266 10^3/uL Today, 06:55 Complete Metabolic Panel: Sodium, (136-145) 135 mmol/L L Today, 06:55 Potassium, (3.5-5.1) 3.9 mmol/L Today, 06:55 Chloride, (98-107) 101 mmol/L Today, 06:55 Carbon Dioxide, (21.0-32.0) 26.6 mmol/L Today, 06:55 BUN, (7-18) 20 mg/dL H Today, 06:55 Creatinine, (0.70-1.30) 0.8 mg/dL Today, 06:55 Est GFR (CKD-EPI 2020), (mL/min/1.73m2) 101.32 Today, 06:55 Calcium, (8.5-10.1) 8.6 mg/dL Today, 06:55 Albumin, (3.4-5.0) 2.6 g/dL L Today, 06:55 Glucose, (74-106) 166 mg/dL H Today, 06:55 C-Reactive Protein Pending Today, 05:35 Liver Function Panel: ALT, (16-63) 25 U/L Today, 06:55 AST, (15-37) 12 U/L L Today, 06:55 Anesthesia Assessment and Plan Anesthesia History Personal History: No History of Anesthesia Complications and Unknown Anesthesia History Family History: No Family History of Anesthesia Complications Exercise Tolerance Exercise Tolerance: Metabolic Equivalents>4 Cardiac & Pulmonary Exam Cardiac Exam: Normal S1/S2 Heart Sounds Pulmonary Exam: Clear Bilateral Breath Sounds Cardiac and Pulmonary Comment:: does have a cough. Implantable Cardiac Device Does patient have a Pacemaker or an ICD?: No Airway Exam Known Difficult Airway: No Mallampati Class: 2 Mouth Opening: Normal (> 3cm) Thyromental Distance: Greater than 3 cm Neck Range of Motion: Full ROM Neck Circumference: Normal Teeth Condition: Generalized Poor Dentition ASA Classification ASA Score: ASA 2 Emergency Case?: No NPO Status NPO Status: NPO Clears >2 hours, Solids >8 hours Anesthesia Plan Resuscitation Status: Full Code Anesthesia Technique: General Anesthesia Airway Planned: Endotracheal Tube Monitors Used: Standard Monitors Preoperative Comments:: 59 yo to OR for I/D of hip. currently inpt. Has received hydromorphone, morphine for pain. Per hospitalist H/P, Rocephin 2 grams was given at OSH - unsure of time. Sig PMHx: HTN, TALIA, COPD (duoneb this AM), DM (Farxiga, metformin, Mounjaro), BPH (Afluzosin). Current smoker, occ EtOH/cannabis. Discussed GA vs spinal, not interested in spinal due to sig pain currently. Plan for GA.
[2025-09-04 07:47] LABS: RBC Morphology Normal
[2025-09-04 07:56] LABS: ALT 25 U/L (16-63); AST 12 U/L (15-37); Albumin 2.6 g/dL (3.4-5.0); Alkaline Phosphatase 83 U/L (46-116); Anion Gap 7.4 mmol/L (3-11); BUN 20 mg/dL (7-18); Bilirubin, Total 0.3 mg/dL (0.2-1.0); CO2 26.6 mmol/L (21.0-32.0); Calcium 8.6 mg/dL (8.5-10.1); Chloride 101 mmol/L (98-107); Glucose 166 mg/dL (74-106); Potassium 3.9 mmol/L (3.5-5.1); Sodium 135 mmol/L (136-145); Total Protein 6.7 g/dL (6.4-8.2)
--- NOTE | 2025-09-04 07:58 | DI.CT_ITS ---
Exam(s) CT LOWER EXTREMITY LT WO EXAM: CT LOWER EXTREMITY LT WO CLINICAL HISTORY: postop WARNER infection. TECHNIQUE: Imaging Protocol: Axial computed tomography images with coronal and sagittal reformatted images were created and reviewed. COMPARISON: CR XR HIP LT COMPLETE AP PELVIS from 09/01/2025 CR XR HIP LT AP LAT ONLY from 09/04/2025 FINDINGS: There is artifact from the patient's left total hip arthroplasty. Bones: Patient has a left total hip arthroplasty. There are no suspicious lucencies around the orthopedic hardware. Bony alignment is satisfactory. No findings to suggest osteomyelitis. There is a vertical lucency seen in the acetabular roof (series 12, image 65 and series 16, image 16). This may represent a nondisplaced fracture. No lytic or sclerotic lesions are identified. Soft Tissues: There is edema seen in the soft tissues of the lateral thigh. There is a air-fluid collection measuring 3.2 transverse by 5.7 AP by 9.1 craniocaudad cm. It lies within the anterior compartment and compresses the vastus lateralis muscle. It lies deep to the tensor fascia manuel muscle. Note is made of diverticulosis in the colon. Atherosclerotic calcification is present. IMPRESSION: 1. 3.2 x 5.7 x 9.1 cm in capsulated air-fluid collection interposed between the tensor fascia manuel and the vastus lateralis muscle. This may represent a postoperative seroma, resolving hematoma or possible abscess. 2. Vertical lucency seen in the lateral acetabular roof which may represent a nondisplaced fracture. 3. Left total hip arthroplasty. RADIATION DOSE DELIVERED: 411.64mGy.cm Total DLP 411.64mGy.cm Total DLP DATA REPOSITORY: All CT scans at this facility are submitted to the National Radiology Data Registry (NRDR) Dose Index Registry (DIR) with the [employer] (A[employer]). RADIATION OPTIMIZATION: All CT scans at this facility use at least one of these dose optimization techniques: automated exposure control; mA and/or kV adjustment per patient size (includes targeted exams where dose is matched to clinical indication); or iterative reconstruction.
--- NOTE | 2025-09-04 08:05 | DI.RAD_ITS ---
Exam(s) XR HIP LT AP LAT ONLY EXAM: XR HIP LT AP LAT ONLY CLINICAL HISTORY: postop infection. TECHNIQUE: 2D digital imaging was performed of the left hip. Three views were obtained. AP and cross-table lateral views were obtained. COMPARISON: CR XR HIP LT COMPLETE AP PELVIS from 09/01/2025 FINDINGS: BONES: No acute fracture is present. No bony destructive lesion is seen. JOINTS: There is a left total hip arthroplasty which appears in good position. No suspicious lucencies are seen around the orthopedic hardware. SOFT TISSUE: Normal. IMPRESSION: Left total hip arthroplasty. DATA REPOSITORY: RADIATION DOSE DELIVERED:
[2025-09-04] MEDS: Nicotine 2 MG GUM CH (08:18)
[2025-09-04] MEDS: Acetaminophen 500 MG TAB 1000 MG PO ×2 (09:01→20:10)
[2025-09-04] MEDS: Ketorolac 15 MG/ML VIAL IVP ×2 (09:03→22:07)
[2025-09-04] MEDS: FLU Vaccine TS 2025-26 PF (36MOS UP) 45 MCG/0.5 ML SYR IM (09:05)
--- NOTE | 2025-09-04 09:53 | OCONE_ITS ---
Date of service: 09/04/25 Time of Service: 07:55 History of Present Illness History of Present Illness Chief Complaint: Left hip pain Narrative: Nayan is a 59-year-old male who is just over 2 weeks status post left hip replacement. He was seen in the office just 3 days ago for his left hip replacement. He reported to be doing well was having more pain in the right side. He is ambulating without assistive device. However, the following day started feeling some more pain in the left hip and then by the following day, yesterday, he had more exquisite pain about the left hip with fever and chills. He presented to [facility] emergency department where there was some scant drainage from the hip wound and concern for infection. Dr. Valentine was called in consultation and he was eventually transferred to the hospital service. [facility]. He reports exquisite pain at the left hip. He reports subjective fevers and chills. With elevated white count, CRP, sed rate. X-ray and CT scan were performed this morning. He denies any issues preceding this and the onset was relatively sudden. Consults Consult date: 09/04/25 Requesting physician: Jasen Richardson Consult Reason Left postsurgical hip infection Assessment and Plan Assessment and plan (1) Left hip postoperative wound infection: Status: Acute Assessment and plan: Nayan is a 59-year-old male who is just over 2-week status post left hip replacement. Unfortunately he has developed an infection about the left hip wound. This appears to be within the musculature and the soft tissue. It does not seem to track into the joint based on the CT scan. However, this is obviously a concern. Nevertheless, with a very quick presentation my suspicion is that this is more superficial than deep. I recommend we proceed to the operating today for irrigation and debridement of the left hip wound. If this goes into the hip joint then we may have to consider deep irrigation debridement with potential for headliner exchange. I reviewed all this with Nayan. We will hold on antibiotics until after cultures been obtained. NPO. Review of Systems All systems reviewed & are unremarkable except as noted in HPI and below PFSH All Active Problems (Updated 09/01/25 @ 13:19 by GARRY Givens) Left hip postoperative wound infection (Acute) Smoking (Acute) History of total left hip replacement (Acute 08/19/25) Medical History (Updated 09/04/25 @ 11:31 by Colby Lopez MD) BPH w urinary obs/LUTS Urinary retention Vesicular eczema Psoriasis Prostatitis HTN (hypertension) Diabetes Periodic limb movement disorder TALIA (obstructive sleep apnea) Lumbago Knee pain HLD (hyperlipidemia) Heart murmur COLD (chronic obstructive lung disease) Allergic rhinitis Surgical History (Updated 09/01/25 @ 13:19 by GARRY Givens) H/O shoulder replacement Left Social History Smoking/Tobacco Use Status: Current every day Tobacco Type: cigarettes Smoking risk assessment performed?: Yes Alcohol Intake: current Alcohol Intake frequency: holidays/special occasions only Alcohol type: beer and wine Drug use: Occasionally Substance use type: marijuana Details: once every 2 weeks Housing: other Do you feel safe at home: Yes Do you feel safe in your relationship?: Yes Additional Social history: [employer], mobile home Exam Narrative Exam Narrative: Laying supine in the hospital stretcher. Obviously uncomfortable. Alert and orient x 3. Evaluation of the left leg shows an approximate incision several very small area about the midportion of the wound which has some scant purulent drainage. There is notable erythema seen about the anterolateral aspect the proximal left thigh. He does report some pain with all range of motion although direct palpation of the left hip and thigh causes the majority of the pain. Sensation intact to light touch over the femoral and sciatic nerve distributions. Results Last Vital Signs Temp 38.4 C H 09/04/25 08:54 Pulse 80 09/04/25 08:54 Resp 16 09/04/25 08:54 BP 120/67 09/04/25 08:54 Pulse Ox 93 09/04/25 08:54 Labs 09/04/25 06:55 09/04/25 06:55 Labs: Laboratory Results - last 24 hr 09/04/25 06:55 WBC 20.84 H RBC 3.82 L Hgb 11.8 L Hct 35.3 L MCV 92 MCH 30.9 MCHC 33.4 RDW 13.9 Plt Count 266 MPV 9.7 Immature Gran % 0.9 Neutrophils % 83.5 Lymphocytes % 5.2 Monocytes % 10.2 Eosinophils % 0.0 Basophils % 0.2 Nucleated RBC % 0.0 Absolute Neutrophils 17.40 H Absolute Lymphocytes 1.08 L Absolute Monocytes 2.13 H Absolute Eosinophils 0.00 Absolute Basophils 0.04 RBC Morphology Normal Sodium 135 L Potassium 3.9 Chloride 101 Carbon Dioxide 26.6 Anion Gap 7.4 BUN 20 H Creatinine 0.8 Est GFR (CKD-EPI 2020) 101.32 Glucose 166 H Calcium 8.6 Total Bilirubin 0.3 AST 12 L ALT 25 Alkaline Phosphatase 83 Total Protein 6.7 Albumin 2.6 L Imaging Imaging Studies: X-ray of the left hip shows a well-placed prosthesis. No signs of acute complications. No signs of loosening. No gas seen within the hip joint. CT scan of the left hip demonstrates some defect of the wound with air in the soft tissues and extending into the tensor fascia manuel muscle belly. No gas or air is seen deep to the tensor fascia manuel. However, within the muscle compartment there are multiple air bubbles as well as fluid collection seen deep and distal. I see no fluid tracking into the hip joint. See no air bubbles or gas within the hip joint itself.
--- NOTE | 2025-09-04 10:30 | DI.VRAD_ITS ---
PROCEDURE INFORMATION: Exam: CT Left Lower Extremity With Contrast, Hip Exam date and time: 09/04/2025 7:30 AM Age: 59 years old Clinical indication: Prior surgery; Surgery date: <1 month; Surgery type: Hip - left; S/P hip surgery - pain ? infection TECHNIQUE: Imaging protocol: CT of the left lower extremity with intravenous contrast was performed. Exam focused on the hip. Radiation optimization: All CT scans at this facility use at least one of these dose optimization techniques: automated exposure control; mA and/or kV adjustment per patient size (includes targeted exams where dose is matched to clinical indication); or iterative reconstruction. COMPARISON: CR XR HIP LT COMPLETE AP PELVIS 09/01/2025 1:21 PM FINDINGS: Bones/joints: Postoperative changes of recent left total hip arthroplasty. Subcutaneous edema about the left hip and thigh. Fragments of heterotopic ossification adjacent to the superolateral acetabulum. Vertical lucency in the superolateral acetabulum adjacent to the acetabular cup, best seen on axial series 16, image 16 and the coronal series 12 images 62 through 67 Soft tissues: Fluid collection in the proximal thigh just deep to the tensor fascia manuel measuring approximately 5.2 x 2.8 x 6.1 cm in AP, transverse, and craniocaudad dimension. This contains several pockets of gas anteriorly. Is also contains fragments of high density posteriorly which could be calcification.. There is also gas in the subcutaneous fat along the anterior aspect of the proximal thigh and groin. Vascular calcifications. Urinary bladder: Distended urinary bladder. Reproductive: Prostate calcifications. IMPRESSION: 1. Postoperative changes of recent left hip arthroplasty with an approximately 6 cm fluid collection deep to the proximal tensor fascia manuel contains gas and calcification. This could be a postoperative seroma or abscess. 2. Pockets of gas in the groin and proximal anterior thigh Dictated and Authenticated by: Nannette Raman MD. Orderin Serge Mooney MD
[2025-09-04 10:33] LABS: Lab Add On Test DONE
[2025-09-04 10:41] LABS: ESR 39 mm/hr (0-20)
--- NOTE | 2025-09-04 10:45 | CHAPLAIN ---
I had a brief visit with Nayan who was resting in bed. I explained my role and offered support. He asked for help getting his remote which had fallen on the floor.
[2025-09-04 10:46] LABS: C-Reactive Protein 24.52 mg/dL (<or=0.5)
[2025-09-04 11:00] LABS: Hemoglobin A1C 7.2 % (<5.7)
[2025-09-04] MEDS: VANCOMYCIN/WATER (PEG) 1.25 GM/250 ML BAG IVPB ×2 (12:47→22:08)
[2025-09-04] MEDS: VANCOMYCIN/WATER (PEG) 2 GM/400 ML BAG IVPB ×2 (12:47→19:49)
[2025-09-04] MEDS: Ketorolac 30 MG/ML VIAL ×2 (13:41→20:32)
[2025-09-04] MEDS: EPINEPHrine 1 MG/ML AMP pres-free ×2 (13:41→20:32)
[2025-09-04] MEDS: Albuterol/Ipratropium 3 ML UPD VIAL UPD (14:24)
[2025-09-04] MEDS: ePHEDrine 25 MG/5 ML Syringe IVP (14:27)
[2025-09-04] MEDS: HYDROmorphone 2 MG/ML SYR IVP ×2 (15:08→15:20)
[2025-09-04] MEDS: ACETAMINOPHEN 1,000 MG/100 ML BAG 100 MG (15:09)
--- NOTE | 2025-09-04 15:18 | PHACLINREV_ITS ---
Pharmacy Admission Review Admission Clinical Review Admission Pharmacy Review: Left hip postoperative wound infection (Acute) Smoking (Acute) History of total left hip replacement (Acute 08/19/25) No Known Allergies Allergy (Verified 09/01/25 13:11) Resuscitation Status Full Code Height 5 ft 8 in Weight 93.1 kg Pharmacy Admission Review Renal Dosing Renal Dosing: BUN 20 mg/dL (7-18) H 09/04/25 06:55 Creatinine 0.8 mg/dL (0.70-1.30) 09/04/25 06:55 Medications needing adjustments: Reviewed (CrCl 86.97 mL/min) List of meds needing interventions: Current medications are okay Anticoagulation Anticoagulation: Hgb 11.8 g/dL (13.5-17.5) L 09/04/25 06:55 Hct 35.3 % (40.0-50.0) L 09/04/25 06:55 Plt Count 266 10^3/uL (130-400) 09/04/25 06:55 Creatinine 0.8 mg/dL (0.70-1.30) 09/04/25 06:55 DVT Prophylaxis: Reviewed (SCDs - POD#0) Opiate Usage Evaluate Pain Scale/Pains Meds: Reviewed (hydromorphone 1mg IVP q2h PRN - no doses given, morphine 2mg IVP q3h PRN - 4mg/24hrs, oxycodone 10mg q4h PRN - no doses given) Scheduled Bowel Reg ordered if on Opiates?: Yes (BID docusate) Relevant Labs Relevant Labs: ESR 39 mm/hr (0-20) H 09/04/25 06:55 Sodium 135 mmol/L (136-145) L 09/04/25 06:55 Potassium 3.9 mmol/L (3.5-5.1) 09/04/25 06:55 Chloride 101 mmol/L (98-107) 09/04/25 06:55 C-Reactive Protein 24.52 mg/dL (<or=0.5) H 09/04/25 06:55 Electrolytes, C-Reactive P, ESR: Reviewed DM Control DM Control: Glucose 166 mg/dL (74-106) H 09/04/25 06:55 Hemoglobin A1c 7.2 % (<5.7) H 09/04/25 06:55 Finger Stick Blood Glucose 187 1454 Finger Stick Blood Glucose 187 1454 Finger Stick Blood Glucose 195 1201 DM Control: Reviewed Insulin Dosing, Diabetic Medication: Has order for SS insulin, metformin 1000mg BID and patients own Farxiga 5mg daily Cardiac Review BP, HR, EF%: Reviewed (BP 113/57, HR WNL, Oxygen flow rate = 15) QTc Review QTc: Reviewed (No EKG on file) IV to PO Switch IV Medications: Reviewed (cefazolin, hydromorphone and vancomycin) Home Meds Home Med List reviewed: Intervened Relevent Home Meds Not ordered & why?: celecoxib (PRN) and vitamin B12 Asked nurse to see if patient takes pantoprazole at home - recently filled but not on home med list. Waiting to hear back. Changed Farxiga to patients own order (non-form), asked nurse to see if this could be brought in for the patient. Waiting to hear back. Current Meds Current Medication Order Review: Intervened Comments: Discontinued PACU orders Added IV access order Pharmacy Antibiotic Review Relevant Labs: Relevant Labs 09/04/25 06:55 C-Reactive Protein 24.52 H WBC 20.84 10^3/uL (4.4-10.8) H 09/04/25 06:55 Temperature 36.6 C Temperature 36.6 C Temperature 36.6 C Temperature 36.7 C Temperature 36.7 C Temperature 36.7 C Temperature 35.9 C Temperature 38.4 C Temperature 37.2 C Temperature 37.2 C Pharmacy Antibiotic Activity: C/S review and Reviewed, no change Comments: Patient is on cefazolin and vancomycin, day 1, for left hip surgical wound infection. Current vancomycin dose is 1250mg q12h with predicted AUC of 522. Level ordered for [facility] at 1999. Will adjust dose as needed based on labs.
--- NOTE | 2025-09-04 15:28 | W.ANESPOSTOP ---
Postoperative Evaluation Date, Time and Location Date Performed: 09/04/25 Time Performed: 15:28 Patient Location: PACU Vital Signs Most Recent Imported Vital Signs: Most Recent Vital Signs Temp Pulse Resp BP Pulse Ox 36.6 C 68 21 113/57 L 96 09/04/25 14:52 09/04/25 15:17 09/04/25 15:17 09/04/25 15:17 09/04/25 15:17 Pain Score Most Recent Pain Score: Most Recent Pain Score Pain Level [Left Hip] 4 09/04/25 11:26 Pain Level 5 09/04/25 14:52 Assessment Mental Status: Awake (Alert & Oriented to Patient Baseline) Airway and Respiratory Function: Patent airway with normal (patient baseline) respiratory exam Cardiovascular Function: Hemodynamically Stable Hydration Status: Adequately Hydrated Nausea & Vomiting: No Nausea or Vomiting Pain: Pain is Moderate or Severe Postoperative Pain Management: Pain being addressed with medication and Ongoing pain, patient will be managed as an inpatient Peripheral Nerve Block: Patient did not receive a nerve block
--- NOTE | 2025-09-04 16:30 | ROE_ITS ---
Operative Note Operative Note PRE-OP DIAGNOSIS: Left Prosthetic Hip Infection POST-OP DIAGNOSIS: same PROCEDURE: Irrigation and Debridement with Head and Liner Exchange - LEFT Hip SURGEON: Colby Lopez ANESTHESIA TYPE: General LMA/ETT Refer to Anesthesia Record ESTIMATED BLOOD LOSS: 100 PATHOLOGY: other (3 aerobic cultures and 1 anaerobic cultures were sent from the hip) COMPLICATIONS: None Indications: Nayan is a 59-year-old male who is about 2-1/2 weeks status post left hip replacement. He was in the office on Monday and reportedly doing well. Is ambulating without assistive device and a mild limp. However following days her developed increasing pain about the left hip to the point he could barely walk. He is seen in the emergency department [facility] yesterday and diagnosed with infection of the left hip. We were then called and accepted in transfer. He had elevated white count and inflammatory markers with a red swollen left hip which has some drainage. Therefore, I recommended proceeding urgently to the operating room for irrigation debridement. I had significant concern this was all the way down into the deep space of the left hip and therefore recommend we plan on potential headliner exchange with irrigation debridement of the joint itself. I reviewed the procedure. I discussed risk to include bleeding, continued infection, loosening, need for repeat procedures, Pain, stiffness, blood clot. Despite these risk, he elects to proceed. Findings: There is gross purulence seen within the tensor fascia manuel muscle compartment and extending distally as well as deep into the hip joint. An aggressive irrigation debridement performed along with hip and liner exchange. Procedure Description: Nayan was greeted in the preoperative holding area. His Aday was confirmed the correct site was identified and marked. The consent was reviewed the patient and signed. He was taken to the operative room placed in supine position. A general anesthetic was administered. Bilateral legs were placed into boots for the [place] table. He is in position onto the bed against the perineal post with both feet in holders for the [place] table. All bony prominences were well-padded and arms were comfortably position and secured. Prophylactic antibiotics were held until after cultures were obtained. The left leg was then prepped with ChloraPrep and draped in standard fashion. A timeout was performed for safe surgery. The previous incision site was excised of the scar tissue including the area defect proximately. This was extended proximal and 1 cm proximal and distal. The skin was discarded. Deep tissues beneath the skin were inspected and did not show any gross purulence though there is a slight scant amount seen. 1 aerobic culture swab was taken from this area. The fascia the tensor fascia Lotto was closed. I open the sutures and with some minimal manual dissection there is a significant expression of purulent material from deep to the tensor fascia manuel. This was evacuated and with palpation it went all the way down towards the anterior aspect of the femur and the hip joint. This confirmed the diagnosis of a deep infection into the prosthetic space. I extended the incision distally and continue to dissect and open up the tensor fascia a lot of for better visualization of the joint itself. 2 aerobic cultures from the space were obtained. A single anaerobic culture was also obtained from here. There is also a notable pocket extending distal within the muscle fascia of the TFL and down towards the IT band. We this exposed I then dislocated the hip. I used a bone tamp to remove the ceramic head. A curved osteotome was then used to remove the acetabular polyethylene. I performed a gentle debridement utilizing curette as well as a rongeur throughout the soft tissues, muscle belly and muscle compartment as well as in the joint itself. After this was performed I irrigated the hip with 3 L normal saline. A second look was obtained Corail went through removed any other necrotic-appearing tissue or purulent material. There is minimal seen at this time. Attention was turned to the joint space and around the acetabular component. After this was inspected once again I irrigated the hip and soft tissues with another 1 L of normal saline. There is no area of concern at this point and therefore I proceeded with preparation of the soft tissues with irrigation of Betadine. This was allowed to sit the wound for 3 minutes. After this time it was washed out and irrigated with normal saline once again. From this point forward there is no overlap between previously used instruments. New gloves were obtained. I then reimplanted a new polyethylene liner, 54 x 36 mm. A new ceramic head was also placed, 36+1.5 mm. This was impacted into position. The hip was then reduced without difficulty. The subcutaneous tissues and the muscle was injected with a mixture of ropivacaine, epinephrine, ketorolac. The fascia of the tensor fascia manuel was then closed with a running #0 PDS. The deep subcutaneous layer was closed with interrupted #0 PDS followed by a running 2-0 PDS. The skin was closed with a running 4-0 Monocryl followed by a mulu vacuum-assisted dressing to aid with fluid management and wound healing. I did the case all counts are correct. He was transferred to the hospital bed and then to the PACU in stable condition. There is no notable complications. Date of Procedure: 09/04/25
--- NOTE | 2025-09-04 17:01 | PDOC.CMIN ---
Date of service: 09/04/25 Time of Service: 17:01 Care Management Initial Assmt Initial Assessment Reason for Hospitalization: L hip pain Functional Status/Living Situation Patient Presentation: Nayan was lying in bed when CM met with him. He appeared sleepy, and had difficulty staying awake through the conversation. He stated that he had been to the OR today, and he feels it went well, but he has not seen the MD since the OR. He reported that he lives in [place], alone, and is independent. He stated that he has been unemployed since June, which has been difficult financially; he stated that he has applied for unemployment, but it has been a difficult process. He stated that he has stable housing, but it has been a hardship being out of work, and he would benefit from support with food. CM will send a referral to [facility] for support with local resources. Per report, Nayan had a left hip replacement on 08/19/25, and was doing fairly well at his follow up with Ortho on 09/01/25. He was first seen in the ED at [facility], and was transferred to [facility] for further medical management. CM will continue to follow. Town of Residence: [place] Resides with: Alone Significant Other/Family: Local Natural Supports: Daughter, Bel, lives nearby and is supportive. Employment Status: Unemployed Instrumental Activities of Daily Living (ADLs): Independent Medications Medication Management: No Issues/Barriers identified Physical Functioning/Mobility Assistive Device: FWW Advance Directives Advance Directives: Do you have an Advance Directive: N 06/25/24, 09:05 AD On File at [facility]: N 06/19/24, 10:56 Date Asked 09/04/25 Today, 07:47 AD Date Reviewed COLST On File at [facility] COLST Date Scanned Code Status Resuscitation Status Full Code Insurance Coverage/Financial Issues Insurance: SINAN Financial Issues: Currently unemployed and seeking support for local resources; [facility] referral placed. Care Team Visit Care Team Role Provider Type Colby Lopez MD MD [facility] STAFF PHYSICIAN Dennys Rodas DO Primary Care Provider NON-[facility] STAFF PHYSICIAN Eda Gr Other Providers BIRD KEEPER Elena Bhatt Other Providers BIRD KEEPER Mechelle Bruce Other Providers BIRD KEEPER Vinicio Valentine MD Other Providers [facility] STAFF PHYSICIAN Toshia Labounty RN Other Providers BIRD KEEPER Zuri Richardson Other Providers BIRD KEEPER Jasen Richardson MD Admit Provider MD [facility] STAFF PHYSICIAN Attending Provider Discharge Potential Discharge Needs: Surgical F/U Appt Anticipated Barriers to Discharge: None Identified Patient/Family Education Needs: Review discharge instructions, discuss Ask Me Three Transportation: Private vehicle Plan: Anticipate Nayan will return home once medically cleared. He will be driven home via private vehicle by his daughter vs FOUZIA. CM is sending a referral to [facility] for community supports. He will follow up with his PCP and discharge plan of care. CM will continue to follow. Social Determinants of Health Screening Social Determinants of health last assessed in clinic: 09/04/25 Will the Patient Participate in the Screening?: Yes Do you worry about having a steady place to live?: no Problems where you live: smoke detectors missing or not working, Carbon monoxide detectors missing or not working, water leaks, unsafe young/stairs and inadequate lighting In the past 12 months, have you had to go without electric, gas, oil or water in your home?: yes 1. Within the past 12 months, we worried whether our food would run out before we got money to buy more.: Sometimes true 2. Within the past 12 months, the food we bought just didn't last and we didn't have money to get more.: Sometimes true Has lack of transportation kept you from medical appointments or from doing things needed for daily living?: no Has anyone in your life made you feel unsafe or unsupported?: no How hard is it for you to pay for the very basics like food, housing, medical care, and heating? Would you say it is:: Somewhat hard Do you want help finding or keeping work or a job?: Yes, help finding work If for any reason you need help with day-to-day activities such as bathing, preparing meals, shopping, managing finances, etc., do you get the help you need?: I could use a little more help How often do you feel lonely or isolated from those around you?: Sometimes Do you speak a language other than Greek at home?: No Does the patient want assistance with any of the above?: Yes Health Related Social Needs Health related social needs: inadequate housing (Z59.1), food insecurity (Z59.41), material hardship(utilities) (Z59.12), problems related to housing/economic circumstances (Z59.89), problems finding work (Z56.9), problems with daily activities (Z73.9) and feeling lonely/isolated (Z60.8) Health related social needs details: see above Interventions Referrals and interventions: [facility] referral sent for community resource support [facility] All Active Problems (Updated 09/01/25 @ 13:19 by GARRY Givens) Left hip postoperative wound infection (Acute) Smoking (Acute) History of total left hip replacement (Acute 08/19/25) Medical History (Updated 09/04/25 @ 11:31 by Colby Lopez MD) BPH w urinary obs/LUTS Urinary retention Vesicular eczema Psoriasis Prostatitis HTN (hypertension) Diabetes Periodic limb movement disorder TALIA (obstructive sleep apnea) Lumbago Knee pain HLD (hyperlipidemia) Heart murmur COLD (chronic obstructive lung disease) Allergic rhinitis Surgical History (Updated 09/01/25 @ 13:19 by GARRY Givens) H/O shoulder replacement Left Social History Smoking/Tobacco Use Status: Current every day Tobacco Type: cigarettes Smoking risk assessment performed?: Yes Alcohol Intake: current Alcohol Intake frequency: holidays/special occasions only Alcohol type: beer and wine Drug use: Occasionally Substance use type: marijuana Details: once every 2 weeks Housing: other Do you feel safe at home: Yes Do you feel safe in your relationship?: Yes Additional Social history: UT[employer], mobile home
[2025-09-04] MEDS: Docusate Sodium 100 MG CAP PO (20:10)
[2025-09-04] MEDS: Methylphenidate 10 MG TAB 20 MG PO (20:10)
[2025-09-04] MEDS: Aspirin E.C. 81 MG TABEC PO (20:10)
[2025-09-04] MEDS: metFORMIN 500 MG TAB 1000 MG PO (20:10)
[2025-09-04] MEDS: ceFAZolin 2 GM/50 ML BAG IVPB (20:11)
[2025-09-04] MEDS: ROPIvacaine 0.2% 200 MG/100 ML BAG (20:33)
[2025-09-04 20:59] LABS: Vancomycin, Random 11.6 ug/mL
[2025-09-05] MEDS: Ketorolac 15 MG/ML VIAL IVP ×4 (03:44→18:27)
[2025-09-05] MEDS: ceFAZolin 2 GM/50 ML BAG IVPB ×3 (03:45→20:45)
[2025-09-05 06:52] LABS: HCT 31.8 % (40.0-50.0); HGB 10.4 g/dL (13.5-17.5); MCH 30.1 pg (27.0-33.0); MCHC 32.7 % (32.0-36.0); MCV 92 fL (80-95); MPV 10.1 fL (8.0-11.0); Platelet Count 255 10^3/uL (130-400); RBC 3.46 10^6/uL (4.36-5.78); RDW 14.0 % (11.8-14.1); RDW-SD 47.5 fL; WBC 21.54 10^3/uL (4.4-10.8)
[2025-09-05 07:03] LABS: Anion Gap 8.1 mmol/L (3-11); BUN 26 mg/dL (7-18); CO2 26.9 mmol/L (21.0-32.0); Calcium 9.2 mg/dL (8.5-10.1); Chloride 100 mmol/L (98-107); Glucose 191 mg/dL (74-106); Potassium 4.1 mmol/L (3.5-5.1); Sodium 135 mmol/L (136-145)
[2025-09-05 07:35] VITALS: BP 125/67; PULSE 57; RESP 16; TEMP 36.1; O2SAT 99
[2025-09-05] MEDS: Tiotropium Bromide-Respimat 10 PUFF INH 2 PUFF IH (08:17)
[2025-09-05] MEDS: FLUoxetine 20 MG CAP 60 MG PO (08:35)
[2025-09-05] MEDS: Atorvastatin 20 MG TAB PO (08:36)
[2025-09-05] MEDS: rifAMPin 300 MG CAP PO ×2 (08:36→18:27)
[2025-09-05] MEDS: Docusate Sodium 100 MG CAP PO (08:36)
[2025-09-05] MEDS: Methylphenidate 10 MG TAB 20 MG PO (08:37)
[2025-09-05] MEDS: Aspirin E.C. 81 MG TABEC PO ×2 (08:37→20:47)
[2025-09-05] MEDS: Tamsulosin 0.4 MG CAPCR PO (08:38)
[2025-09-05] MEDS: Acetaminophen 500 MG TAB 1000 MG PO ×3 (08:38→20:46)
[2025-09-05] MEDS: metFORMIN 500 MG TAB 1000 MG PO ×2 (08:39→20:46)
[2025-09-05] MEDS: Insulin Aspart 300 UNITS/3 ML PEN SC ×2 (08:41→12:58)
[2025-09-05] MEDS: Normal Saline Flush 10 ML SYR IVP ×4 (08:48→20:47)
--- NOTE | 2025-09-05 09:38 | PGE_ITS ---
Date of Service Date of service: 09/05/25 Time of Service: 09:05 Assessment and Plan Assessment and plan (1) Prosthetic joint infection of left hip: Status: Acute Assessment and plan: Nayan is a 59-year-old male who unfortunately developed an infection about his left hip. This was a deep infection involving the joint and aggressive irrigation debridement with headliner exchange was performed. He symptomatically feels much better this morning. He still has a notably elevated white count of 21. His vital signs have been stable. Blood cultures performed at [facility] return group A strep. All cultures here at [facility] are still pending. At this point treatment of his bacteremia will coincide with treatment of the deep hip joint infection involving the left hip replacement. It is unclear whether this originated in the hip and then spread the bloodstream or it somehow was in the bloodstream and spread to the hip. Either way the treatment be the same. He is now status post aggressive debridement with head and liner exchange. Hopefully this will be able to treat the infection locally along with the IV antibiotics. He is on broad-spectrum antibiotics of vancomycin and cefazolin at this point. I will await her cultures to finalize before I narrow down the spectrum activity. Given the potential for staph involvement we will start him on rifampin as well. He has no formal restrictions about the left hip. He is weightbearing as tolerated with an assistive device. There are no positioning restrictions. Mulu dressing should be monitored. If the dressing is full there should be a light, orange, which signifies this and then the dressing should be changed. Appreciate pharmacy management of the vancomycin dosing. Resume regular diet with probiotic support. (2) Streptococcal bacteremia: Status: Acute Assessment and plan: Continue to follow cultures, treating with broad-spectrum antibiotics. Will plan for PICC line placement once blood cultures are negative. Subjective Subjective Interval history since last seen: Nayan reports improved pain about his left hip and leg. Has been able to move in the bed and move the hip around unlike yesterday. He denies any fevers or chills or chest pain or shortness of breath. There has been noted discharge to the dressing itself but the mulu wound vacuum system is still working appropriately. Exam Narrative Exam Narrative: Sitting up in the hospital bed. No acute distress. Alert and x 3. He does tolerate internal/external Tatian of the left hip without any significant pain. There is still some fullness and some mild hyperemia seen about the left thigh. There is sanguinous appearing discharge within the dressing pad of the mulu system. The vacuum-assisted dressing is still working appropriately with the polyp showing adequate suction and a green light. Sensation intact to light touch over the femoral nerve distribution. Objective Last Vital Signs Temp 36.1 C L 09/05/25 07:35 Pulse 57 L 09/05/25 07:35 Resp 16 09/05/25 07:35 BP 125/67 09/05/25 07:35 Pulse Ox 99 09/05/25 07:35 Laboratory Results - last 24 hr 09/04/25 09/04/25 09/04/25 06:55 10:31 20:30 WBC RBC Hgb Hct MCV MCH MCHC RDW Plt Count MPV ESR 39 H Sodium Potassium Chloride Carbon Dioxide Anion Gap BUN Creatinine Est GFR (CKD-EPI 2020) Glucose Hemoglobin A1c 7.2 H Calcium C-Reactive Protein 24.52 H Random Vancomycin 11.6 Add-On Test Request DONE 09/04/25 09/05/25 Unknown 06:25 WBC 21.54 H RBC 3.46 L Hgb 10.4 L Hct 31.8 L MCV 92 MCH 30.1 MCHC 32.7 RDW 14.0 Plt Count 255 MPV 10.1 ESR Sodium 135 L Potassium 4.1 Chloride 100 Carbon Dioxide 26.9 Anion Gap 8.1 BUN 26 H Creatinine 0.8 Est GFR (CKD-EPI 2020) 101.32 Glucose 191 H Hemoglobin A1c Calcium 9.2 C-Reactive Protein Random Vancomycin Add-On Test Request Cancelled Time Spent with Patient Time Spent with Patient: 25-34 minutes Time was spent: preparing to see the patient(eg.review tests), obtaining and/or reviewing separately otained hiistory, ordering medications,tests, procedures and counseling the patient
[2025-09-05] MEDS: VANCOMYCIN/WATER (PEG) 1.25 GM/250 ML BAG IVPB (13:45)
[2025-09-05] MEDS: Calcium Carbonate *TUMS* 500 MG CHEW 1000 MG PO ×2 (14:46→20:47)
--- NOTE | 2025-09-05 16:39 | PGE_ITS ---
Date of Service Date of service: 09/05/25 Time of Service: 10:00 Assessment and Plan Assessment and plan (1) History of total left hip replacement: Status: Acute Assessment and plan: Postoperative cleanout Sep 04 afternoon Following cultures to determine course of antibiotics Discussed with Dr Lopez (2) Smoking: Status: Acute Assessment and plan: Continue nicotine patch (3) HLD (hyperlipidemia): Assessment and plan: Continue with statin (4) Diabetes: Assessment and plan: Will add glucometers q. ACHS as well as a sliding scale as tight glucose control will help his wound healing. (5) Urinary retention: Assessment and plan: Continue with his home meds (6) COLD (chronic obstructive lung disease): Assessment and plan: Restart VTE chemoprophylaxis Subjective Subjective Interval history since last seen: Mr. Stock is comfortable in bed. No new complaints. Exam Narrative Exam Narrative: General: This is a pleasant man in no distress HEENT: Normocephalic, atraumatic CV: RRR Resp: CTAB Abd: soft, NTND MSK: voluntary motion x4. Left hip incision site dressed. Neuro: awake, alert, no focal deficits Objective Last Vital Signs Temp 36.1 C L 09/05/25 07:35 Pulse 57 L 09/05/25 07:35 Resp 16 09/05/25 07:35 BP 125/67 09/05/25 07:35 Pulse Ox 99 09/05/25 07:35 Laboratory Results - last 24 hr 09/04/25 09/05/25 20:30 06:25 WBC 21.54 H RBC 3.46 L Hgb 10.4 L Hct 31.8 L MCV 92 MCH 30.1 MCHC 32.7 RDW 14.0 Plt Count 255 MPV 10.1 Sodium 135 L Potassium 4.1 Chloride 100 Carbon Dioxide 26.9 Anion Gap 8.1 BUN 26 H Creatinine 0.8 Est GFR (CKD-EPI 2020) 101.32 Glucose 191 H Calcium 9.2 Random Vancomycin 11.6 Time Spent with Patient Time Spent with Patient: 25-34 minutes Time was spent: preparing to see the patient(eg.review tests), obtaining and/or reviewing separately otained hiistory, ordering medications,tests, procedures, referring, communicating with other health laboratory animal caretaker, indepentently interpreting results, counseling the patient and care coordination
--- NOTE | 2025-09-05 18:08 | CMPROGNOTE_ITS ---
Date of service: 09/05/25 Time of Service: 18:08 Care Management Progress Note Progress Note Text Progress Note Text: Nayan was lying in bed when CM met with him. He stated that he met with the MD today, who informed him he will remain at [facility] for a couple more days, and may need IV antibiotics at home. CM discussed options for intermediate project manager IV antibiotics, including SWB, home IV abx, and daily infusion room visits. He stated that he would prefer to either have abx therapy at home or may be able to go to an infusion center in [place]. CM advised that will generally teach a caregiver how to administer the medication. He has a daughter nearby, and stated that she may be able to help him with home IV abx therapy. He does not want to remain hospitalized longer than he needs to be, but is agreeable to remain for now, until a plan is made. CM will continue to follow. Discharge Potential Discharge Needs: Other (intermediate project manager IV antibiotics) Anticipated Barriers to Discharge: Medical Status Patient/Family Education Needs: Review discharge instructions, discuss Ask Me Three Transportation: Private vehicle Plan: Nayan will likely return home once medically cleared. He may need intermediate project manager IV antibiotics, which he prefers to have at home vs at an infusion center in [place]. He will be driven home via private vehicle. He will follow up with his PCP and discharge plan of care. CM will continue to follow. Social Determinants of Health Screening Social Determinants of health last assessed in clinic: 09/05/25 Will the Patient Participate in the Screening?: Yes Do you worry about having a steady place to live?: no Problems where you live: smoke detectors missing or not working, Carbon monoxide detectors missing or not working, water leaks, unsafe young/stairs and inadequate lighting In the past 12 months, have you had to go without electric, gas, oil or water in your home?: yes 1. Within the past 12 months, we worried whether our food would run out before we got money to buy more.: Sometimes true 2. Within the past 12 months, the food we bought just didn't last and we didn't have money to get more.: Sometimes true Has lack of transportation kept you from medical appointments or from doing things needed for daily living?: no Has anyone in your life made you feel unsafe or unsupported?: no How hard is it for you to pay for the very basics like food, housing, medical care, and heating? Would you say it is:: Somewhat hard Do you want help finding or keeping work or a job?: Yes, help finding work If for any reason you need help with day-to-day activities such as bathing, preparing meals, shopping, managing finances, etc., do you get the help you need?: I could use a little more help How often do you feel lonely or isolated from those around you?: Sometimes Do you speak a language other than Ukrainian at home?: No Does the patient want assistance with any of the above?: Yes Health Related Social Needs Health related social needs: inadequate housing (Z59.1), food insecurity (Z59.41), material hardship(utilities) (Z59.12), problems related to housing/economic circumstances (Z59.89), problems finding work (Z56.9), problems with daily activities (Z73.9) and feeling lonely/isolated (Z60.8) Health related social needs details: see above
[2025-09-05] MEDS: Simethicone 80 MG CHEW 40 MG PO ×2 (18:27→22:46)
[2025-09-05] MEDS: Protein Nutritional Supplement 16 GM 1 OUNCE PACKET PO (20:45)
[2025-09-05 21:02] VITALS: BP 177/89; PULSE 56; RESP 25; TEMP 37.1; O2SAT 99
[2025-09-05] MEDS: oxyCODONE 10 MG TAB PO (22:58)
[2025-09-06] MEDS: Insulin Aspart 100 UNITS/ML UNIT 6 UNITS SC (01:11)
[2025-09-06] MEDS: VANCOMYCIN/WATER (PEG) 1.25 GM/250 ML BAG IVPB ×2 (01:33→13:46)
[2025-09-06] MEDS: Ketorolac 15 MG/ML VIAL IVP ×3 (01:34→17:54)
[2025-09-06] MEDS: ceFAZolin 2 GM/50 ML BAG IVPB ×3 (04:02→20:22)
[2025-09-06] MEDS: HYDROmorphone 2 MG/ML SYR 0.5 MG IVP ×2 (04:16→06:21)
[2025-09-06] MEDS: oxyCODONE 10 MG TAB PO ×3 (04:16→20:22)
[2025-09-06] MEDS: Nicotine 2 MG GUM CH ×2 (04:18→20:21)
[2025-09-06] MEDS: rifAMPin 300 MG CAP PO ×2 (06:21→20:21)
[2025-09-06 06:39] LABS: HCT 31.1 % (40.0-50.0); HGB 10.3 g/dL (13.5-17.5); MCH 30.3 pg (27.0-33.0); MCHC 33.1 % (32.0-36.0); MCV 92 fL (80-95); MPV 10.5 fL (8.0-11.0); Platelet Count 323 10^3/uL (130-400); RBC 3.40 10^6/uL (4.36-5.78); RDW 13.9 % (11.8-14.1); RDW-SD 46.7 fL; WBC 18.38 10^3/uL (4.4-10.8)
[2025-09-06 06:53] LABS: Anion Gap 8.9 mmol/L (3-11); BUN 27 mg/dL (7-18); C-Reactive Protein 11.05 mg/dL (<or=0.5); CO2 24.1 mmol/L (21.0-32.0); Calcium 8.7 mg/dL (8.5-10.1); Chloride 102 mmol/L (98-107); Glucose 105 mg/dL (74-106); Potassium 3.9 mmol/L (3.5-5.1); Sodium 135 mmol/L (136-145)
[2025-09-06 08:15] VITALS: BP 144/85; PULSE 57; RESP 16; TEMP 36.8; O2SAT 98
[2025-09-06] MEDS: Tiotropium Bromide-Respimat 10 PUFF INH 2 PUFF IH (08:27)
[2025-09-06] MEDS: Normal Saline Flush 10 ML SYR IVP (08:41)
[2025-09-06] MEDS: Protein Nutritional Supplement 16 GM 1 OUNCE PACKET PO (08:43)
[2025-09-06] MEDS: metFORMIN 500 MG TAB 1000 MG PO ×2 (08:44→20:20)
[2025-09-06] MEDS: Calcium Carbonate *TUMS* 500 MG CHEW 1000 MG PO ×3 (08:45→20:19)
[2025-09-06] MEDS: Simethicone 80 MG CHEW 40 MG PO ×4 (08:45→20:21)
[2025-09-06] MEDS: Aspirin E.C. 81 MG TABEC PO ×2 (08:46→20:22)
[2025-09-06] MEDS: Tamsulosin 0.4 MG CAPCR PO (08:46)
[2025-09-06] MEDS: Acetaminophen 500 MG TAB 1000 MG PO ×3 (08:46→20:19)
[2025-09-06] MEDS: Atorvastatin 20 MG TAB PO (08:48)
[2025-09-06] MEDS: FLUoxetine 20 MG CAP 60 MG PO (08:56)
--- NOTE | 2025-09-06 13:36 | W.PM.PROGNOT ---
Date of Service Date of service: 09/06/25 Time of Service: 13:36 Assessment and Plan Assessment and plan (1) Prosthetic joint infection of left hip: Status: Acute Assessment and plan: 59-year-old male postop day #2 status post Left hip irrigation & debridement with head & liner exchange 09/04/25 for acute prosthetic joint infection; Left WARNER 08/19/25 Clinically doing well. Subjectively and objectively improving. Comfortable. No fevers, chills, or major side effects from medications. No signs or symptoms of recurrent infection or other complication. Continue weightbearing as tolerated with assist device. Monitor mulu dressing, which has stable small area of sanguinous drainage. Blood cultures taken here 09/04/2025 are no growth to date Left hip OR aerobic cultures x3 are positive for strep pyogenous, anaerobic culture is no growth to date Will review with Dr. Lopez. Likely discontinue vancomycin. Continue cefazolin and rifampin. Arrange PICC placement and outpatient IV antibiotics. Appeciate medical co-management. See Dr. Lopez's notes for greater details. Objective Last Vital Signs Temp 98.2 F 09/06/25 08:15 Pulse 57 L 09/06/25 08:15 Resp 16 09/06/25 08:15 BP 144/85 H 09/06/25 08:15 Pulse Ox 98 09/06/25 08:15 Laboratory Results - last 24 hr 09/06/25 05:45 WBC 18.38 H RBC 3.40 L Hgb 10.3 L Hct 31.1 L MCV 92 MCH 30.3 MCHC 33.1 RDW 13.9 Plt Count 323 MPV 10.5 Sodium 135 L Potassium 3.9 Chloride 102 Carbon Dioxide 24.1 Anion Gap 8.9 BUN 27 H Creatinine 0.8 Est GFR (CKD-EPI 2020) 101.32 Glucose 105 Calcium 8.7 C-Reactive Protein 11.05 H Time Spent with Patient Time Spent with Patient: <25 minutes Time was spent: preparing to see the patient(eg.review tests)
--- NOTE | 2025-09-06 16:05 | W.PM.PROGNOT ---
Date of Service Date of service: 09/06/25 Time of Service: 08:00 Assessment and Plan Assessment and plan (1) History of total left hip replacement: Status: Acute Assessment and plan: Postoperative cleanout Sep 04 afternoon Following cultures to determine course of antibiotics Continue rifampin, cefazolin, vancomycin pending further info (2) Smoking: Status: Acute Assessment and plan: Continue nicotine patch (3) HLD (hyperlipidemia): Assessment and plan: Continue with statin (4) Diabetes: Assessment and plan: Will add glucometers q. ACHS as well as a sliding scale as tight glucose control will help his wound healing. (5) Urinary retention: Assessment and plan: Continue with his home meds (6) COLD (chronic obstructive lung disease): Assessment and plan: Restart VTE chemoprophylaxis Subjective Subjective Interval history since last seen: Mr. Stock is comfortable in bed. Pain is well managed. Exam Narrative Exam Narrative: General: This is a pleasant man in no distress HEENT: Normocephalic, atraumatic CV: RRR Resp: CTAB Abd: soft, NTND MSK: voluntary motion x4. Left hip incision site dressed. Neuro: awake, alert, no focal deficits Objective Last Vital Signs Temp 36.8 C 09/06/25 08:15 Pulse 57 L 09/06/25 08:15 Resp 16 09/06/25 08:15 BP 144/85 H 09/06/25 08:15 Pulse Ox 98 09/06/25 08:15 Laboratory Results - last 24 hr 09/06/25 05:45 WBC 18.38 H RBC 3.40 L Hgb 10.3 L Hct 31.1 L MCV 92 MCH 30.3 MCHC 33.1 RDW 13.9 Plt Count 323 MPV 10.5 Sodium 135 L Potassium 3.9 Chloride 102 Carbon Dioxide 24.1 Anion Gap 8.9 BUN 27 H Creatinine 0.8 Est GFR (CKD-EPI 2020) 101.32 Glucose 105 Calcium 8.7 C-Reactive Protein 11.05 H Time Spent with Patient Time Spent with Patient: 25-34 minutes Time was spent: preparing to see the patient(eg.review tests), obtaining and/or reviewing separately otained hiistory, ordering medications,tests, procedures, referring, communicating with other health senior caregiver, indepentently interpreting results, counseling the patient and care coordination
[2025-09-06] MEDS: Insulin Aspart 300 UNITS/3 ML PEN SC ×2 (17:55→21:11)
[2025-09-06] MEDS: Lactobacillus Acidophilus CAP 1 CAP PO (20:19)
[2025-09-06 20:32] VITALS: BP 177/83; PULSE 51; RESP 22; TEMP 37; O2SAT 98
[2025-09-06 21:05] VITALS: BP 158/69
[2025-09-07] MEDS: oxyCODONE 10 MG TAB PO ×4 (00:12→18:02)
[2025-09-07] MEDS: VANCOMYCIN/WATER (PEG) 1.25 GM/250 ML BAG IVPB (02:24)
[2025-09-07] MEDS: Ketorolac 15 MG/ML VIAL IVP ×2 (02:24→09:41)
[2025-09-07] MEDS: ceFAZolin 2 GM/50 ML BAG IVPB ×3 (04:06→20:15)
[2025-09-07] MEDS: Normal Saline Flush 10 ML SYR IVP ×3 (04:11→21:17)
[2025-09-07 06:17] LABS: HCT 34.7 % (40.0-50.0); HGB 11.5 g/dL (13.5-17.5); MCH 29.9 pg (27.0-33.0); MCHC 33.1 % (32.0-36.0); MCV 90 fL (80-95); MPV 9.3 fL (8.0-11.0); Platelet Count 354 10^3/uL (130-400); RBC 3.84 10^6/uL (4.36-5.78); RDW 13.9 % (11.8-14.1); RDW-SD 45.9 fL; WBC 18.16 10^3/uL (4.4-10.8)
[2025-09-07 06:29] LABS: Anion Gap 6.5 mmol/L (3-11); BUN 18 mg/dL (7-18); C-Reactive Protein 7.98 mg/dL (<or=0.5); CO2 27.5 mmol/L (21.0-32.0); Calcium 9.3 mg/dL (8.5-10.1); Chloride 100 mmol/L (98-107); Glucose 128 mg/dL (74-106); Potassium 4.3 mmol/L (3.5-5.1); Sodium 134 mmol/L (136-145)
[2025-09-07] MEDS: rifAMPin 300 MG CAP PO (06:56)
[2025-09-07 07:11] VITALS: BP 144/76; PULSE 53; RESP 18; TEMP 36.5; O2SAT 97
[2025-09-07] MEDS: Acetaminophen 500 MG TAB 1000 MG PO ×3 (07:29→20:14)
[2025-09-07] MEDS: Atorvastatin 20 MG TAB PO (07:30)
[2025-09-07] MEDS: Tamsulosin 0.4 MG CAPCR PO (07:30)
[2025-09-07] MEDS: Aspirin E.C. 81 MG TABEC PO ×2 (07:30→20:14)
[2025-09-07] MEDS: Calcium Carbonate *TUMS* 500 MG CHEW 1000 MG PO ×3 (07:30→20:15)
[2025-09-07] MEDS: FLUoxetine 20 MG CAP 60 MG PO (07:30)
[2025-09-07] MEDS: metFORMIN 500 MG TAB 1000 MG PO ×2 (07:30→18:03)
[2025-09-07] MEDS: Tiotropium Bromide-Respimat 10 PUFF INH 2 PUFF IH (08:14)
[2025-09-07] MEDS: Simethicone 80 MG CHEW 40 MG PO ×4 (09:41→21:17)
--- NOTE | 2025-09-07 10:15 | DI.RAD_ITS ---
Exam(s) XR PORTABLE CHEST AP POST LINE EXAM: XR PORTABLE CHEST AP POST LINE CLINICAL HISTORY: picc line placement TECHNIQUE: 2D digital imaging was performed of the chest. One image was obtained. An AP view was obtained. COMPARISON: CR XR PORTABLE CHEST AP POST LINE from 09/07/2025 FINDINGS: The right PICC line has been retracted. The tip is in good position in the superior vena cava. MEDIASTINUM: Normal. HEART: Normal. PULMONARY VASCULATURE: Normal. LUNGS: Clear. PLEURAL SPACE: No pleural effusion or pneumothorax. BONE:Within normal limits for the patient's age. OTHER FINDINGS:Normal. IMPRESSION: 1. No acute pulmonary findings. 2. The tip of the PICC line is in good position in the superior vena cava. 3. The findings were reported to the primary care team at 1:15 p.m. on 09/07/2025. DATA REPOSITORY: RADIATION DOSE DELIVERED:
--- NOTE | 2025-09-07 10:15 | DI.RAD_ITS ---
Exam(s) XR PORTABLE CHEST AP POST LINE EXAM: XR PORTABLE CHEST AP POST LINE CLINICAL HISTORY: picc line placement TECHNIQUE: 2D digital imaging was performed of the chest. Two images were obtained. PA and lateral views were obtained. COMPARISON: No exams were available for comparison FINDINGS: There has been interval placement of a right PICC line. The catheter tip appears to be in the right atrium it. It could be retracted 3-4 cm. MEDIASTINUM: Normal. HEART: Normal. PULMONARY VASCULATURE: Normal. LUNGS: Clear. PLEURAL SPACE: No pleural effusion or pneumothorax. BONE:Within normal limits for the patient's age. There are degenerative changes seen at the right shoulder. There is a left shoulder prosthesis. OTHER FINDINGS:Normal. IMPRESSION: 1. Interval placement of a right PICC line. The catheter should be retracted 3- 4 cm. 2. There is no acute pulmonary process. 3. The findings were conveyed to the primary care team at 12:25 p.m. on 09/07/2025. DATA REPOSITORY: RADIATION DOSE DELIVERED:
[2025-09-07] MEDS: Lactobacillus Acidophilus CAP 1 CAP PO ×2 (12:20→18:03)
--- NOTE | 2025-09-07 12:31 | PGE_ITS ---
Date of Service Date of service: 09/07/25 Time of Service: 12:20 Assessment and Plan Assessment and plan (1) Prosthetic joint infection of left hip: Status: Acute Assessment and plan: Nayan is status post irrigation debridement of the left hip with head and liner exchange for an infection about the left hip. All cultures are now growing group A strep. This also matches with the positive blood culture in [facility] although our blood cultures have been negative. This will require prolonged IV antibiotics per standards. This will be followed by oral antibiotics for a prolonged period of time given retained hardware. He is clinically making adequate improvement. His CRP is also come down quite quickly. He has been afebrile. However, he still continues to have a leukocytosis. Not exactly sure the origin of this. Interestingly, he had an elevated white count even preoperatively of 14. He has no frequent bowel movements suggest C. difficile. He has a decreasing C-reactive protein and no fevers to suggest ongoing secondary infection. He is doing much better regards to the hip with his ability ambulate and move the left hip which he was unable to do prior to the surgery. Therefore, I think we continue with our course of treating this as the hip infection with resolved bacteremia. PICC line is in place. Plan to transition to ceftriaxone and discharged to home with home IV antibiotics. (2) Streptococcal bacteremia: Status: Resolved (3) Leukocytosis: Status: Acute Subjective Subjective Interval history since last seen: Overall, Nayan reports doing much better. He just had a PICC line placed. He has been able to ambulate independently. He is currently sitting on the edge of bed having lunch. He denies any fever or chills. He denies any chest pain or shortness of breath. The mulu dressing was changed once. Exam Narrative Exam Narrative: Sitting up on the edge of the bed. No acute distress. Alert and orient x 3. Evaluation of the left hip shows a clean dry and intact mulu vacuum-assisted dressing. Resolving redness and warmth about the left thigh. Minimal pain with hip internal and external rotation. He is able to actively extend the left knee as well as flex and extend the left foot and ankle. No significant pain with testing except for reported soreness. Objective Last Vital Signs Temp 36.5 C 09/07/25 07:11 Pulse 53 L 09/07/25 07:11 Resp 18 09/07/25 07:11 BP 144/76 H 09/07/25 07:11 Pulse Ox 97 09/07/25 07:11 Laboratory Results - last 24 hr 09/07/25 06:10 WBC 18.16 H RBC 3.84 L Hgb 11.5 L Hct 34.7 L MCV 90 MCH 29.9 MCHC 33.1 RDW 13.9 Plt Count 354 MPV 9.3 Sodium 134 L Potassium 4.3 Chloride 100 Carbon Dioxide 27.5 Anion Gap 6.5 BUN 18 Creatinine 0.7 Est GFR (CKD-EPI 2020) 105.49 Glucose 128 H Calcium 9.3 C-Reactive Protein 7.98 H Time Spent with Patient Time Spent with Patient: 25-34 minutes Time was spent: preparing to see the patient(eg.review tests), obtaining and/or reviewing separately otained hiistory, ordering medications,tests, procedures, counseling the patient and care coordination
[2025-09-07] MEDS: Insulin Aspart 300 UNITS/3 ML PEN SC (12:51)
--- NOTE | 2025-09-07 19:54 | PGE_ITS ---
Date of Service Date of service: 09/07/25 Time of Service: 14:00 Assessment and Plan Assessment and plan (1) History of total left hip replacement: Status: Acute Assessment and plan: Postoperative cleanout Sep 04 afternoon Following cultures to determine course of antibiotics Group A strep, no concern at this time for necrotizing fascitis Antibiotics changed to cefazolin only. PICC placed today. Arrangements for home health in process. (2) Smoking: Status: Acute Assessment and plan: Continue nicotine patch (3) HLD (hyperlipidemia): Assessment and plan: Continue with statin (4) Diabetes: Assessment and plan: Will add glucometers q. ACHS as well as a sliding scale as tight glucose control will help his wound healing. Can resume home regimen without insulin at discharge. (5) Urinary retention: Assessment and plan: Continue with his home meds (6) COLD (chronic obstructive lung disease): Assessment and plan: Restart VTE chemoprophylaxis Subjective Subjective Interval history since last seen: Mr. Stock is comfortable in bed. No new complaints, no overnight events. Exam Narrative Exam Narrative: General: This is a pleasant man in no distress HEENT: Normocephalic, atraumatic CV: RRR Resp: CTAB Abd: soft, NTND MSK: voluntary motion x4. Left hip incision site dressed. Neuro: awake, alert, no focal deficits Objective Last Vital Signs Temp 36.5 C 09/07/25 07:11 Pulse 53 L 09/07/25 07:11 Resp 18 09/07/25 07:11 BP 144/76 H 09/07/25 07:11 Pulse Ox 97 09/07/25 07:11 Laboratory Results - last 24 hr 09/07/25 06:10 WBC 18.16 H RBC 3.84 L Hgb 11.5 L Hct 34.7 L MCV 90 MCH 29.9 MCHC 33.1 RDW 13.9 Plt Count 354 MPV 9.3 Sodium 134 L Potassium 4.3 Chloride 100 Carbon Dioxide 27.5 Anion Gap 6.5 BUN 18 Creatinine 0.7 Est GFR (CKD-EPI 2020) 105.49 Glucose 128 H Calcium 9.3 C-Reactive Protein 7.98 H Time Spent with Patient Time Spent with Patient: 25-34 minutes Time was spent: preparing to see the patient(eg.review tests), obtaining and/or reviewing separately otained hiistory, ordering medications,tests, procedures, referring, communicating with other health managed care manager, indepentently interpreting results, counseling the patient and care coordination
[2025-09-07 20:03] VITALS: BP 155/79; PULSE 58; RESP 18; TEMP 36.1; O2SAT 96
[2025-09-07] MEDS: Celecoxib 200 MG CAP PO (20:14)
[2025-09-08] MEDS: ceFAZolin 2 GM/50 ML BAG IVPB (04:35)
[2025-09-08] MEDS: Normal Saline Flush 10 ML SYR IVP ×2 (04:35→08:16)
[2025-09-08 06:38] LABS: HCT 37.3 % (40.0-50.0); HGB 12.6 g/dL (13.5-17.5); MCH 30.4 pg (27.0-33.0); MCHC 33.8 % (32.0-36.0); MCV 90 fL (80-95); MPV 9.6 fL (8.0-11.0); Platelet Count 402 10^3/uL (130-400); RBC 4.15 10^6/uL (4.36-5.78); RDW 13.9 % (11.8-14.1); RDW-SD 45.9 fL; WBC 20.05 10^3/uL (4.4-10.8)
[2025-09-08 06:58] LABS: Anion Gap 7.9 mmol/L (3-11); BUN 14 mg/dL (7-18); C-Reactive Protein 5.45 mg/dL (<or=0.5); CO2 28.1 mmol/L (21.0-32.0); Calcium 9.1 mg/dL (8.5-10.1); Chloride 101 mmol/L (98-107); Glucose 141 mg/dL (74-106); Potassium 4.0 mmol/L (3.5-5.1); Sodium 137 mmol/L (136-145)
[2025-09-08] MEDS: FLUoxetine 20 MG CAP 60 MG PO (07:55)
[2025-09-08] MEDS: Tamsulosin 0.4 MG CAPCR PO (07:55)
[2025-09-08] MEDS: Celecoxib 200 MG CAP PO (07:56)
[2025-09-08] MEDS: metFORMIN 500 MG TAB 1000 MG PO (07:56)
[2025-09-08] MEDS: Aspirin E.C. 81 MG TABEC PO (07:56)
[2025-09-08] MEDS: Atorvastatin 20 MG TAB PO (07:56)
[2025-09-08] MEDS: Acetaminophen 500 MG TAB 1000 MG PO ×2 (07:57→13:28)
[2025-09-08] MEDS: Methylphenidate 10 MG TAB 20 MG PO (07:59)
[2025-09-08] MEDS: Calcium Carbonate *TUMS* 500 MG CHEW 1000 MG PO ×2 (07:59→13:30)
[2025-09-08] MEDS: Simethicone 80 MG CHEW 40 MG PO ×2 (08:08→13:27)
[2025-09-08 08:10] VITALS: BP 130/88; PULSE 57; RESP 16; TEMP 36.8; O2SAT 98
[2025-09-08] MEDS: Tiotropium Bromide-Respimat 10 PUFF INH 2 PUFF IH (08:11)
[2025-09-08] MEDS: cefTRIAXone 2 GM/50 ML BAG IVPB (13:27)
--- NOTE | 2025-09-08 13:33 | DSE_ITS ---
Date of service: 09/08/25 Time of Service: 12:45 DS: Diagnosis Discharge Diagnosis (1) Prosthetic joint infection of left hip: Status: Acute (2) Streptococcal bacteremia: Status: Resolved (3) Leukocytosis: Status: Acute Discharge Plan Disposition Patient Disposition: Home W/Home Health Services Condition: Improving Discharge Details Reason For Visit: Left Hip Surgical Wound Infection Admit Date/Time: 09/04/25 02:49 Admit Provider: Jasen Richardson Attending Provider: Jasen Richardson [facility] Course: Nayan was admitted directly from [facility] for an infection of the left hip. He was diagnosed with a prosthetic left hip infection and went to the operating room that day. He had irrigation and debridement with headliner exchange of the left hip. He was started on broad-spectrum antibiotics which was narrowed eventually to ceftriaxone for cultures only growing group A strep. His blood cultures were negative. PICC line was placed. He improved with his functional capacity. He had no other symptoms of fevers or chills. His CRP had decreased from 25-5 yet he had a persistent leukocytosis without other symptoms. He was voiding spontaneously. He was thus deemed safe for discharge to home with IV antibiotics at home, ceftriaxone 2 g daily. Home Meds and New Rx's Prescriptions: New oxycodone 5 mg tablet 5 mg PO Q4H PRNQty: 30 0RF ceftriaxone in dextrose,iso-os 2 gram/50 mL Piggyback 2 g IVPB Q24H Qty: 0 0RF Continued albuterol sulfate 90 mcg/actuation HFA aerosol inhaler 2 puff inhalation Q6H PRN atorvastatin 20 mg tablet 20 mg PO DAILY dapagliflozin propanediol [Farxiga] 5 mg tablet 5 mg PO DAILY Patient Comments: 08/15- preop call done and advised to hold med until after surgery fluoxetine 60 mg tablet 60 mg PO DAILY metformin 500 mg tablet 1,000 mg PO BID Patient Comments: 08/15 preop call advised pt to hold pm dose night before and am dose day of surgery albuterol sulfate [Ventolin HFA] 90 mcg/actuation HFA aerosol inhaler 2 puff inhalation Q4H PRN mecobalamin (vitamin B12) 1,000 mcg lozenge 1,000 mcg PO DAILY Rx Instructions: allow to dissolve in mouth OR may chew lightly before swallowing docusate sodium [Colace] 100 mg capsule 100 mg PO BID Qty: 28 0RF methylphenidate HCl 20 mg tablet 20 mg PO TID Patient Comments: TAKE ONE TABLET BY MOUTH THREE TIMES A DAY tamsulosin 0.4 mg capsule 0.8 mg PO DAILY Patient Comments: TAKE TWO CAPSULES BY MOUTH EVERY DAY tiotropium bromide [Spiriva with HandiHaler] 18 mcg capsule, w/inhalation device 1 cap INHALATION DAILY Patient Comments: INHALE THE CONTENTS OF ONE CAPSULE VIA HANDIHALER BY MOUTH DAILY, TWO INHALATIONS OF ONE CAPSULE FOR EACH DOSE celecoxib [Celebrex] 200 mg capsule 200 mg PO BID PRNQty: 60 0RF Rx Instructions: Take one tablet twice daily for pain and inflammation aspirin 81 mg tablet,delayed release (DR/EC) 81 mg PO BID 30 Days Qty: 60 0RF acetaminophen 500 mg tablet 1,000 mg PO Q8H PRN Qty: 90 0RF Rx Instructions: Take two tablets up to every 8 hours as needed for pain Discharge Instructions Additional Instructions: Total Hip Discharge Instructions Activity: The most important activity is to walk. You should try to take short walks a few times a day. You have no restrictions on movement or positioning, but do not try to force what you do. You will find some stiffness and weakness with hip flexion (lifting your knee). Do not try to strengthen this too early, continue to practice walking and stairs and this will come. Dressing: Keep the surgical dressing in place until follow-up. When the mulu dressing stops working, blinking green light, please call the office and we will instruct you on the next steps. You have been provided with extra dressings which you may use to change from the current dressing that you have. Medications: - You should take Tylenol and an anti-inflammatory Celebrex as your primary pain control medications. If the Celebrex is too expensive or not covered, please call the office for another alternative (Advil/Ibuprofen or Naproxen/Aleve). - You have been prescribed a stronger pain medication Oxycodone for breakthrough pain, take as needed as prescribed. - You will be taking ceftriaxone 2 g daily for 6 weeks. You should consider intake of yogurt or other probiotics to help out with GI health while you are on these antibiotics. - You will be taking Aspirin 81mg twice a day for DVT prevention unless instructed otherwise. - If you have constipation you should take Colace or Miralax (both over-the- counter). It takes most people 3-4 days to have a bowel movement. Follow-up: 2 weeks If you have any acute concerns or questions, please do not hesitate to contact the office at [phone]. You may contact Dr. Lopez with any questions after hours through the hospital at [phone] or on his cell phone at [phone]. Referrals: Colby Lopez MD [ [facility] STAFF PHYSICIAN, Orthopaedic Surgical] Activity:: Activity as Tolerated Equipment/Supplies:: No Equipment Needed Diet:: As Tolerated DS: Summary Time Spent with Patient providing and/or coordinating discharge services: Greater than 30 minutes Status at Discharge Functional status at discharge: uses cane/walker Overall status at discharge: patient is progressing back to baseline Mental Status: mental status grossly normal Speech and Movement: speech and movement normal Mood: congruent mood Affect: normal affect Quality:SDOH Health Related Social Needs: Health related social needs inadequate housing food in security material hardship house/econ circumstance finding work daily activities lonely/isolated Health related social needs details see above Health related social needs details: see above Referrals and interventions: JORGE L referral sent for community resource support Exam Narrative Exam Narrative: Sitting up on edge of the bed. No acute distress. Alert orient x 3. Evaluation of the left hip shows a clean dry and intact dressing. Significant treatment with erythema and swelling of the left thigh. No significant pain with hip internal and external rotation. Sensation intact light touch of the fe moral and sciatic nerve distribution. Psych Mental Status: mental status grossly normal Speech and Movement: speech and movement normal Mood: congruent mood Affect: normal affect DS: Data Vitals/I&O Vitals and I&O: Vital Signs Temperature 36.8 C 09/08/25 08:10 Temperature Source Temporal Artery Scan 09/08/25 08:10 Pulse 57 L 09/08/25 08:10 Pulse Rhythm Regular 09/04/25 03:39 Pulse 62 09/04/25 15:31 Respiratory Rate 16 09/08/25 08:10 Respiratory Effort Normal, Non-Labored 09/04/25 03:39 Respiratory Depth Normal 09/04/25 03:39 Respiratory Pattern Normal 09/04/25 03:39 Blood Pressure 130/88 09/08/25 08:10 Blood Pressure Mean 102 09/08/25 08:10 Pulse Oximetry 98 09/08/25 08:10 Respiratory End-tidal CO2 34 09/04/25 15:33 Oxygen Delivery Method Room Air 09/08/25 08:10 Oxygen Flow Rate 0 09/08/25 08:10 Pain Level 3 09/08/25 13:28 Comment repeat BP, pt had been in pain and had just gotten back to bed with 2031 bp check 09/06/25 21:05 Intake & Output 09/07/25 09/08/25 09/08/25 23:59 11:59 23:59 Intake Total 360 / 1270 570 / 570 Balance 360 / 1270 570 / 570 Weight 89.811 kg Intake: IV 110 / 410 70 / 70 Oral 250 / 860 500 / 500 Other: Comment independent Stool Size Small Stool Characteristics Formed Brown Data Completed and Pending Pending Labs at Discharge: 09/04/25 09/04/25 09/04/25 06:55 10:31 20:30 WBC 20.84 H RBC 3.82 L Hgb 11.8 L Hct 35.3 L MCV 92 MCH 30.9 MCHC 33.4 RDW 13.9 Plt Count 266 MPV 9.7 Immature Gran % 0.9 Neutrophils % 83.5 Lymphocytes % 5.2 Monocytes % 10.2 Eosinophils % 0.0 Basophils % 0.2 Nucleated RBC % 0.0 Absolute Neutrophils 17.40 H Absolute Lymphocytes 1.08 L Absolute Monocytes 2.13 H Absolute Eosinophils 0.00 Absolute Basophils 0.04 RBC Morphology Normal ESR 39 H Sodium 135 L Potassium 3.9 Chloride 101 Carbon Dioxide 26.6 Anion Gap 7.4 BUN 20 H Creatinine 0.8 Est GFR (CKD-EPI 2020) 101.32 Glucose 166 H Hemoglobin A1c 7.2 H Calcium 8.6 Total Bilirubin 0.3 AST 12 L ALT 25 Alkaline Phosphatase 83 C-Reactive Protein 24.52 H Total Protein 6.7 Albumin 2.6 L Random Vancomycin 11.6 Add-On Test Request DONE 09/04/25 09/05/25 09/06/25 Unknown 06:25 05:45 WBC 21.54 H 18.38 H RBC 3.46 L 3.40 L Hgb 10.4 L 10.3 L Hct 31.8 L 31.1 L MCV 92 92 MCH 30.1 30.3 MCHC 32.7 33.1 RDW 14.0 13.9 Plt Count 255 323 MPV 10.1 10.5 Immature Gran % Neutrophils % Lymphocytes % Monocytes % Eosinophils % Basophils % Nucleated RBC % Absolute Neutrophils Absolute Lymphocytes Absolute Monocytes Absolute Eosinophils Absolute Basophils RBC Morphology ESR Sodium 135 L 135 L Potassium 4.1 3.9 Chloride 100 102 Carbon Dioxide 26.9 24.1 Anion Gap 8.1 8.9 BUN 26 H 27 H Creatinine 0.8 0.8 Est GFR (CKD-EPI 2020) 101.32 101.32 Glucose 191 H 105 Hemoglobin A1c Calcium 9.2 8.7 Total Bilirubin AST ALT Alkaline Phosphatase C-Reactive Protein 11.05 H Total Protein Albumin Random Vancomycin Add-On Test Request Cancelled 09/07/25 09/08/25 06:10 06:00 WBC 18.16 H 20.05 H RBC 3.84 L 4.15 L Hgb 11.5 L 12.6 L Hct 34.7 L 37.3 L MCV 90 90 MCH 29.9 30.4 MCHC 33.1 33.8 RDW 13.9 13.9 Plt Count 354 402 H MPV 9.3 9.6 Immature Gran % Neutrophils % Lymphocytes % Monocytes % Eosinophils % Basophils % Nucleated RBC % Absolute Neutrophils Absolute Lymphocytes Absolute Monocytes Absolute Eosinophils Absolute Basophils RBC Morphology ESR Sodium 134 L 137 Potassium 4.3 4.0 Chloride 100 101 Carbon Dioxide 27.5 28.1 Anion Gap 6.5 7.9 BUN 18 14 Creatinine 0.7 0.6 L Est GFR (CKD-EPI 2020) 105.49 110.51 Glucose 128 H 141 H Hemoglobin A1c Calcium 9.3 9.1 Total Bilirubin AST ALT Alkaline Phosphatase C-Reactive Protein 7.98 H 5.45 H Total Protein Albumin Random Vancomycin Add-On Test Request Preliminary micro results at discharge 09/04/25 12:45 Hip - Left Wound Culture - Preliminary Strep pyogenes (Group A) 09/04/25 12:45 Hip - Left Anaerobic Culture - Preliminary 09/04/25 17:20 Blood Blood Culture - Preliminary NO GROWTH 72 HOURS 09/04/25 17:07 Blood Blood Culture - Preliminary NO GROWTH 72 HOURS PFSH All Active Problems Leukocytosis (Acute) Prosthetic joint infection of left hip (Acute) Smoking (Acute) History of total left hip replacement (Acute 08/19/25) Medical History BPH w urinary obs/LUTS Urinary retention Vesicular eczema Psoriasis Prostatitis HTN (hypertension) Diabetes Periodic limb movement disorder TALIA (obstructive sleep apnea) Lumbago Knee pain HLD (hyperlipidemia) Heart murmur COLD (chronic obstructive lung disease) Allergic rhinitis Surgical History H/O shoulder replacement Left Social History Smoking/Tobacco Use Status: Current every day Tobacco Type: cigarettes Smoking risk assessment performed?: Yes Alcohol Intake: current Alcohol Intake frequency: holidays/special occasions only Alcohol type: beer and wine Drug use: Occasionally Substance use type: marijuana Details: once every 2 weeks Housing: other Do you feel safe at home: Yes Do you feel safe in your relationship?: Yes Additional Social history: [facility], mobile home Time Spent with Patient Time Spent with Patient: 45-69 minutes Time was spent: preparing to see the patient(eg.review tests), obtaining and/or reviewing separately otained hiistory, ordering medications,tests, procedures, referring, communicating with other health children's zoo caretaker, indepentently interpreting results, counseling the patient and care coordination
--- NOTE | 2025-09-08 17:41 | CMDISCH_ITS ---
Date of service: 09/08/25 Time of Service: 17:41 LACE Index Scoring Tool Questions: Length of Stay (in days): 4 - 6 Was the patient admitted via the E.D.?: Yes E.D. Visits: 0 Answers: Total Score: 7 Risk of Readmission: Low Risk Care Management Discharge Plan Reason for Hospitalization: left hip surgical wound infection Discharge Plan: Nayan discharged home today with new orders for HH RN to support his home IV antibiotic therapy. Nayan chose [facility] as a DME provider, who will deliver his medication and supplies by the end of the day tomorrow. He will have a $1 weekly copay, which he agreed to. He will go to the [facility] infusion center tomorrow, 09/09/25, for his daily dose of Ceftriaxone, and will start his home IV therapy on 09/10/25, with the support of [facility]. CM coordinated with [facility] infusion, [facility], and [facility] to support this plan. Nayan's daughter drove him home via private vehicle. He will follow up with [facility] and his discharge plan of care. He was happy to be able to return home today. Patient/Family Education Needs: Review discharge instructions and limitations, discussion of self care needs including ask me three. Services Needed at Discharge: DME Agency ([facility], home IV antibiotic therapy), Home Health Care Services ([facility]) and Infusion Therapy ([facility] infusion for one day/one dose of antibiotics) SDOH Health Related Social Needs: Health related social needs inadequate housing food in security material hardship house/econ circumstance finding work daily activities lonely/isolated Health related social needs details see above Health related social needs details: see above Referrals and interventions: JORGE L referral sent for community resource support
== END 2025-09-08 17:13 | disposition home health service (06) | DRG 467 ==
PROVIDERS: Student in an Organized Health Care Education/Training Program; Admitting Provider Hospitalist; PCP Specialist/Technologist Athletic Trainer; Responsible Provider Student in an Organized Health Care Education/Training Program; Visit Provider Hospitalist
PROC: 0SRS03A Replacement of Left Hip Joint, Femoral Surface with Ceramic Synthetic Substitute, Uncemented, Open Approach (ICD-10-PCS; CPT 27138; principal; 2025-09-04 12:15)
DX: T84.52XA Infection and inflammatory reaction due to internal left hip prosthesis, initial encounter (principal); E87.1 Hypo-osmolality and hyponatremia; Z59.12 Inadequate housing utilities; R78.81 Bacteremia; E78.5 Hyperlipidemia, unspecified; F17.210 Nicotine dependence, cigarettes, uncomplicated; E11.9 Type 2 diabetes mellitus without complications; J44.9 Chronic obstructive pulmonary disease, unspecified; R33.9 Retention of urine, unspecified; N40.0 Benign prostatic hyperplasia without lower urinary tract symptoms; Z79.85 Long-term (current) use of injectable non-insulin antidiabetic drugs; Z79.84 Long term (current) use of oral hypoglycemic drugs; L30.8 Other specified dermatitis; L40.9 Psoriasis, unspecified; I10 Essential (primary) hypertension; G47.61 Periodic limb movement disorder; G47.33 Obstructive sleep apnea (adult) (pediatric); M54.50 Low back pain, unspecified; R01.1 Cardiac murmur, unspecified; Z96.612 Presence of left artificial shoulder joint; Z96.642 Presence of left artificial hip joint; Z59.89 Other problems related to housing and economic circumstances; Z73.89 Other problems related to life management difficulty; Z56.9 Unspecified problems related to employment; R45.89 Other symptoms and signs involving emotional state; B95.0 Streptococcus, group A, as the cause of diseases classified elsewhere; D72.829 Elevated white blood cell count, unspecified
CPT/HCPCS: 36573; 27138; 00123; 36415; 71045; 80048; 80053; 85027; 85652; 87040; 87077; 90656; 94640; 73502; 73700; 80202; 83036; 85025; 86140; 87070; 87075; 87205; 94664; 99222; 99231; C1776; J0131; J0166; J0690; J0696; J1100; J1171; J1815; J1885; J2003; J2250; J2270; J2405; J2704; J2795; J3010; J3373; J7620